=== PATIENT | male | born 1940 | race Caucasian/White ===

== ENCOUNTER → 2018-10-30 | Outpatient (CLI) | payer MEDICARE ==
--- NOTE | 2018-10-30 10:17 | Diagnostic Imaging Report ---
Clinical indication: Patient with chronic kidney disease. Exam: Ultrasound of both kidneys. Comparison: Bilateral renal Doppler ultrasound dated 04/14/2018.. Findings: There are multiple bilateral renal cysts seen. The largest one in the right kidney measures 1.9 cm and is seen involving the superior pole. The previous largest cyst on the prior study measured 2.5 cm involving the lateral aspect of the right kidney. There is a 7 mm cyst involving the inferior pole left kidney. There is slight increased echogenicity involving the cortical regions of both kidneys. There is normal cortical thickness without hydronephrosis, stones, or other focal lesions with the right and left kidneys measuring 9.6 cm and 11.3 cm in their craniocaudal dimensions, respectively. Prostate gland is enlarged measuring 5.5 cm in transverse dimension. Otherwise, the bladder is fluid filled with no gross abnormality. Bilateral ureter jets are seen. Impression: 1: There is no evidence of acute renal process. There is no hydronephrosis. 2: There is cortical hyperechogenicity involving both kidneys which may be seen with chronic medical renal disease. 3: Bilateral renal cysts. 4: Enlarged prostate gland. Dictated by: Dictated on workstation # [id number]
== END ==
LOC: RAD 08:53
PROVIDERS: ATTEND Internal Medicine Nephrology
DX: I12.9 Hypertensive chronic kidney disease with stage 1 through stage 4 chronic kidney disease, or unspecified chronic kidney disease (principal); N18.4 Chronic kidney disease, stage 4 (severe); D63.1 Anemia in chronic kidney disease; N28.1 Cyst of kidney, acquired; N40.0 Benign prostatic hyperplasia without lower urinary tract symptoms; R73.03 Prediabetes
CPT/HCPCS: 76770

== ENCOUNTER → 2021-12-29 | Outpatient (CLI) | payer MEDICARE ==
--- NOTE | 2021-12-29 18:04 | Diagnostic Imaging Report ---
PROCEDURE: US Renal Bilateral. TECHNIQUE: Multiple real-time grayscale images were obtained over the kidneys in various projections bilaterally. INDICATION: Stage IV chronic kidney disease. FINDINGS: Right kidney measures 10.6 cm. There are multiple right renal cysts, the largest of which off the upper pole is 2.8 cm and off the lower pole 1.7 cm. There is no hydronephrosis. Aside from the cysts, the cortical echotextures and cortical thickness appear normal. The left kidney measures 10.0 cm and has a 6 mm exophytic cyst, simple, off its lower pole. Aside from the cyst, the left renal cortical thickness and echotexture are otherwise normal. There is no hydronephrosis. The urinary bladder appears unremarkable. The prostate indents its base and measures 4.9 x 5.2 x 3.5 cm. IMPRESSION: 1. Right greater than left renal cysts without hydronephrosis. Renal volumes, cortical thickness and echotexture otherwise were normal. 2. Prostamegaly indents the otherwise normal-appearing bladder base. Dictated by: Dictated on workstation # [id number]
== END ==
LOC: RAD 14:23
PROVIDERS: ATTEND Internal Medicine Nephrology
DX: N28.1 Cyst of kidney, acquired (principal); N40.0 Benign prostatic hyperplasia without lower urinary tract symptoms; I12.9 Hypertensive chronic kidney disease with stage 1 through stage 4 chronic kidney disease, or unspecified chronic kidney disease; N18.4 Chronic kidney disease, stage 4 (severe); E79.0 Hyperuricemia without signs of inflammatory arthritis and tophaceous disease
CPT/HCPCS: 76770

== ENCOUNTER 2022-03-01 06:20 | Outpatient (CLI) | payer MEDICARE ==
[~2022-03-01] VITALS: Ht 182.9 cm; Wt 81.7 kg
[2022-03-06] MEDS ORDERED: NF-SODBICA PO (14:33)
[2022-03-06] MEDS ORDERED: ISOS60TA63 PO (14:33)
[2022-03-06] MEDS ORDERED: CALC0.253 PO (14:33)
[2022-03-06] MEDS ORDERED: ATOR40TA70 PO (14:33)
[2022-03-06] MEDS ORDERED: LEVO50CA4 PO (14:33)
[2022-03-06] MEDS ORDERED: ALLO100T PO (14:33)
[2022-03-06] MEDS ORDERED: DILT-27 PO (14:33)
== END 2022-03-06 15:10 | disposition home or self-care (01) ==
LOC: PREOP 06:20
PROVIDERS: ATTEND Specialist
DX: Z01.818 Encounter for other preprocedural examination (principal)

== ENCOUNTER 2022-03-09 08:57 | Day surgery (SDC) | payer MEDICARE ==
[~2022-03-09] VITALS: Ht 182.9 cm; Wt 81.7 kg
[~2022-03-09 08:57] MED LIST: ALLO100T PO; ATOR40TA70 PO; CALC0.253 PO; DILT-27 PO; ISOS60TA63 PO; LEVO50CA4 PO; NF-SODBICA PO
[2022-03-09] MEDS: TETRACAINE 0.5% OPHTH SOLN 4 ML BTL (SINGLE DOSE ONLY) OU PRN ×3 (09:25→09:31)
[2022-03-09] MEDS ORDERED: PHENYLEPHRINE 10% OPHTH (NEO-SYN) 5 ML BTL OU PRN (09:30)
[2022-03-09] MEDS ORDERED: TROPICAMIDE 1% OPH SOLN (MYDRIACYL) 15 ML BTL OU PRN (09:30)
[2022-03-09 09:32] VITALS: BP 209/102
--- NOTE | 2022-03-09 10:59 | Ophthalmologist Pre-Op Note ---
Pre-Operative Progress Note H&P Reviewed The H&P was reviewed, patient examined and no changes noted. Date H&P Reviewed: Mar 09, 2022 Time H&P Reviewed: 10:49 Pre-Op Dx Secondary Cataract, Bilateral Eyes LEILANI COLEMAN MD Mar 09, 2022 10:59
--- NOTE | 2022-03-09 11:00 | Ophthalmology Operative Report ---
YAG Capsulotomy PREOPERATIVE DIAGNOSIS: Secondary Cataract Bilateral POSTOPERATIVE DIAGNOSIS: Secondary Cataract Bilateral PROCEDURE: YAG Capsulotomy, Bilateral SURGEON: Daniel Coleman ANESTHESIA: Topical anesthesia COMPLICATIONS: None ESTIMATED BLOOD LOSS: Minimal DESCRIPTION OF PROCEDURE: After proper informed consent was obtained, the patient's, a 82 male , received one drop of Tropicamide and one drop of Tetracaine in each eye. The patient was then placed at the YAG laser and using a power of [ 4.5] millijoules and bursts [18 ] right eye and [24 ] left eye were used to fashion a central capsulotomy. The patient tolerated the procedure well without complications. DANIEL COLEMAN MD Mar 09, 2022 11:00
== END 2022-03-09 09:50 | disposition home or self-care (01) ==
LOC: SDC 08:57 → EDSTATUS 11:45
PROVIDERS: ATTEND Specialist
DX: E11.36 Type 2 diabetes mellitus with diabetic cataract (principal); H26.40 Unspecified secondary cataract; Z87.891 Personal history of nicotine dependence

== ENCOUNTER 2022-04-04 17:59 | Inpatient (IN) | payer MEDICARE ==
[~2022-04-04] VITALS: Ht 182 cm; Wt 77.8 kg
--- NOTE | 2022-04-04 18:18 | ED Respiratory ---
General Chief Complaint: Respiratory Problems Stated Complaint: SOA,BRONCHITIS Nursing Triage Note: ARRIVED VIA AMB TO ROOM 06 WITH COMPLAINTS OF SOA AND BRONCHITIS FOR 5 WEEKS THAT IS NOT GETTING BETTER. Source: patient, other ( TALKS RAPIDLY NON-STOP AT GREAT LENGTH, AND DOES ALL TALKING FOR PT) Exam Limitations: other (PT AND ARE SOMEWHAT DIFFICULT HISTORIANS) History of Present Illness Date Seen by Provider: Apr 04, 2022 Time Seen by Provider: 18:05 Initial Comments PT ARRIVES VIA POV FROM HOME WITH C/O SHORTNESS OF BREATH AND NON-PRODUCTIVE COUGH X 5 WEEKS SYMPTOMS WORSE SINCE SATURDAY NO FEVER NO CHEST PAIN NO SWELLING IN LEGS/FEET NO DIZZINESS OR SYNCOPE NO GI SYMPTOMS PT SAW DR. ANIA CORONA SEVERAL WEEKS AGO, AFTER HIS SYMPTOMS BEGAN AND WAS STARTED ON DOXYCYCLINE 03/10/22 AND STATES ALSO DEXAMETHASONE, BUT PHARMACY HAS NO RECORD OF STEROIDS, ONLY DOXYCYCLINE HE DID NOT HAVE ANY TESTS OF ANY KIND HE HAS NOT FOLLOWED UP WITH HIM OR ANYONE ELSE SINCE THEN THOUGHT HE WAS GETTING BETTER, THEN STARTED GETTING BAD AGAIN ON SATURDAY WITH INCREASED COUGH AND SHORTNESS OF BREATH PT HAS NOT TAKEN ANYTHING FOR SYMPTOMS PT IS NOT COVID OR FLU VACCINATED DENIES ANY HISTORY OF LUNG OR HEART PROBLEMS--STATES HIS ONLY MEDICAL PROBLEM IS HIGH BLOOD PRESSURE. STATES HE SAW DR. QUINTERO ONE TIME --PT AND DO NOT KNOW WHY HE WAS TOLD TO SEE STUDY ASSISTANT. PCP: DR. ANIA CORONA Allergies and Home Medications Allergies Coded Allergies: No Known Allergies (Unverified Allergy, Unknown, 03/06/22) Patient Home Medication List Home Medication List Reviewed: Yes Allopurinol (Allopurinol) 100 Mg Tablet, 100 MG PO DAILY, (Reported) Entered as Reported by: ARIE PICHARDO on 03/06/22 143 Atorvastatin Calcium (Atorvastatin Calcium) 40 Mg Tablet, 40 MG PO DAILY, (Reported) Entered as Reported by: ARIE PICHARDO on 03/06/22 143 Calcitriol (Calcitriol) 0.25 Mcg Capsule, 0.25 MCG PO DAILY, (Reported) Entered as Reported by: ARIE PICHARDO on 03/06/22 143 Diltiazem HCl (Diltiazem 24Hr ER) 120 Mg Cap.er.24h, 120 MG PO DAILY, (Reported) Entered as Reported by: ARIE PICHARDO on 03/06/22 143 Isosorbide Mononitrate (Isosorbide Mononitrate ER) 60 Mg Tab, 60 MG PO DAILY, (Reported) Entered as Reported by: ARIE PICHARDO on 03/06/22 1433 Levothyroxine Sodium (Levothyroxine) 50 Mcg Capsule, 50 MCG PO, (Reported) Entered as Reported by: ARIE PICHARDO on 03/06/22 1433 Sodium Bicarbonate (Sodium Bicarbonate) 650 Mg Tablet, 1,300 MG PO DAILY, (Reported) Entered as Reported by: ARIE PICHARDO on 03/06/22 1433 Review of Systems Review of Systems Constitutional: no symptoms reported EENTM: no symptoms reported Respiratory: see HPI, cough, short of breath Cardiovascular: no symptoms reported; No chest pain, No edema, No palpitations Gastrointestinal: no symptoms reported Genitourinary: no symptoms reported Musculoskeletal: no symptoms reported Skin: no symptoms reported Psychiatric/Neurological: No Symptoms Reported Hematologic/Lymphatic: No Symptoms Reported Immunological/Allergic: no symptoms reported Past Syuokwe-Avhnyi-Hgecxy Hx Patient Social History Tobacco Use?: Yes Tobacco type used: Cigarettes Smoking Status: Former Smoker Smokeless Tobacco Frequency: Never a User Use of E-Cig and/or Vaping Arslan: Never a User Substance use?: No Alcohol Use?: No Immunizations Up To Date COVID19 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 BENTLEY/NEPHROLOGY) Renal Failure Gastrointestinal: No Musculoskeletal: Yes Gout Endocrine: Yes Hypothyroidsim HEENT: Yes (BILATERAL CATARACTS 03/09/22) Cataract Cancer: No Psychosocial: No Integumentary: No Blood Disorders: Yes (ANEMIA) Family Medical History SOCIAL HISTORY: -SMOKED 1/2-1 PPD, QUIT 10 YEARS AGO -DENIES ETOH -DENIES DRUG USE Physical Exam Vital Signs - First Documented 04/04/22 04/04/22 18:00 18:15 Temp 36.4 Pulse 99 Resp 16 B/P (MAP) 157/132 (140) Pulse Ox 94 O2 Delivery Room Air O2 Flow Rate 2.00 Capillary Refill : Less Than 3 Seconds Height: '" Weight: lbs. oz. kg; 23.00 BMI Method: General Appearance: WD/WN, thin, other (MODERATELY DYSPNEIC, ABLE TO TALK IN SHORT SENTENCES. 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, no motor/sensory deficits, alert, normal mood/affect, oriented x 3 Skin: normal color, warm/dry Focused Exam Sepsis Stage: Ruled Out Reason for ruling out sepsis: DOES NOT MEET CRITERA Possible Source: Pulmonary Lactate Level 04/04/22 18:10: Lactic Acid Level 2.00 Time of Focused Exam: 19:00 Respiratory: Other (MUCH IMPROVEMENT IN LUNG SOUNDS, MILD BIBASILAR RALES RESIDUAL) Cardiovascular: Regular Rate, Rhythm, No Edema, No JVD, No Murmur Capillary Refill: Less Than 3 Seconds Lactic Acid Level Laboratory Tests Test 04/04/22 18:10 Lactic Acid Level 2.00 MMOL/L (0.50-2.00) Within 3hrs of presentation: Admin ABX, Blood cultures prior to ABX's, Focus exam, Lactate level, Other (FLUIDS HELD DUE TO CHF, PRESENT, WITH RENAL FAILURE. ) Progress/Results/Core Measures Suspected Sepsis SIRS Temperature: Pulse: 99 Respiratory Rate: 16 Laboratory Tests 04/04/22 18:10: White Blood Count 9.8 Blood Pressure 157 /132 Mean: 140 04/04/22 18:10: Lactic Acid Level 2.00 Laboratory Tests 04/04/22 18:10: Creatinine 4.26H, INR Comment 1.0, Platelet Count 353, Total Bilirubin 0.2 Results/Orders Lab Results Laboratory Tests Test 04/04/22 18:10 04/04/22 18:12 04/04/22 18:58 Range/Units White Blood Count 9.8 4.3-11.0 10^3/uL Red Blood Count 3.84 L 4.30-5.52 10^6/uL Hemoglobin 9.8 L 13.3-17.7 g/dL Hematocrit 32 L 40-54 % Mean Corpuscular Volume 82 80-99 fL Mean Corpuscular Hemoglobin 26 25-34 pg Mean Corpuscular Hemoglobin Concent 31 L 32-36 g/dL Red Cell Distribution Width 18.5 H 10.0-14.5 % Platelet Count 353 130-400 10^3/uL Mean Platelet Volume 9.3 9.0-12.2 fL Immature Granulocyte % (Auto) 1 % Neutrophils (%) (Auto) 51 42-75 % Lymphocytes (%) (Auto) 44 12-44 % Monocytes (%) (Auto) 4 0-12 % Eosinophils (%) (Auto) 0 0-10 % Basophils (%) (Auto) 0 0-10 % Neutrophils # (Auto) 4.9 1.8-7.8 10^3/uL Lymphocytes # (Auto) 4.3 H 1.0-4.0 10^3/uL Monocytes # (Auto) 0.4 0.0-1.0 10^3/uL Eosinophils # (Auto) 0.0 0.0-0.3 10^3/uL Basophils # (Auto) 0.0 0.0-0.1 10^3/uL Immature Granulocyte # (Auto) 0.1 0.0-0.1 10^3/uL Erythrocyte Sedimentation Rate > 140 H 0-30 MM/HR Prothrombin Time 13.5 12.2-14.7 SEC INR Comment 1.0 0.8-1.4 Activated Partial Thromboplast Time 30 24-35 SEC D-Dimer 5.69 H 0.00-0.49 UG/ML Sodium Level 135 135-145 MMOL/L Potassium Level 4.6 3.6-5.0 MMOL/L Chloride Level 108 H 98-107 MMOL/L Carbon Dioxide Level 17 L 21-32 MMOL/L Anion Gap 10 5-14 MMOL/L Blood Urea Nitrogen 62 H 7-18 MG/DL Creatinine 4.26 H 0.60-1.30 MG/DL Estimat Glomerular Filtration Rate 13 BUN/Creatinine Ratio 15 Glucose Level 111 H 70-105 MG/DL Lactic Acid Level 2.00 0.50-2.00 MMOL/L Calcium Level 9.6 8.5-10.1 MG/DL Corrected Calcium 10.5 H 8.5-10.1 MG/DL Magnesium Level 1.9 1.6-2.4 MG/DL Total Bilirubin 0.2 0.1-1.0 MG/DL Aspartate Amino Transf (AST/SGOT) 24 5-34 U/L Alanine Aminotransferase (ALT/SGPT) 16 0-55 U/L Alkaline Phosphatase 71 40-136 U/L Total Creatine Kinase 34 30-200 U/L Creatine Kinase MB 2.1 <6.6 NG/ML Myoglobin 127.6 H 10.0-92.0 NG/ML Troponin I 0.480 *H <0.028 NG/ML C-Reactive Protein High Sensitivity 6.49 H 0.00-0.50 MG/DL B-Type Natriuretic Peptide 1600.6 H <100.0 PG/ML Total Protein 9.0 H 6.4-8.2 GM/DL Albumin 2.9 L 3.2-4.5 GM/DL Procalcitonin 0.64 H <0.10 NG/ML Influenza Type A (RT-PCR) Not Detected Not Detecte Influenza Type B (RT-PCR) Not Detected Not Detecte SARS-CoV-2 RNA (RT-PCR) Not Detected Not Detecte Urine Color YELLOW Urine Clarity CLEAR Urine pH 6.0 5-9 Urine Specific [place] 1.020 1.016-1.022 Urine Protein 2+ H NEGATIVE Urine Glucose (UA) TRACE H NEGATIVE Urine Ketones NEGATIVE NEGATIVE Urine Nitrite NEGATIVE NEGATIVE Urine Bilirubin NEGATIVE NEGATIVE Urine Urobilinogen 0.2 < = 1.0 MG/DL Urine Leukocyte Esterase NEGATIVE NEGATIVE Urine RBC (Auto) 1+ H NEGATIVE Urine RBC 2-5 H /HPF Urine WBC 0-2 /HPF Urine Squamous Epithelial Cells 2-5 /HPF Urine Crystals NONE /LPF Urine Bacteria TRACE /HPF Urine Casts PRESENT /LPF Urine Hyaline Casts 0-2 H /LPF Urine Mucus NEGATIVE /LPF Urine Culture Indicated NO My Orders Orders - JAMEY FIELDS DO Ed Iv/Invasive Line Start (04/04/22 18:05) Ekg Tracing (04/04/22 18:05) O2 (04/04/22 18:05) Monitor-Rhythm Ecg Trace Only (04/04/22 18:05) Bnp [place] (04/04/22 18:05) Cbc With Automated Diff (04/04/22 18:05) Comprehensive Metabolic Panel (04/04/22 18:05) Creatine Kinase (04/04/22 18:05) Creatine Kinase Mb (04/04/22 18:05) Hs C Reactive Protein (04/04/22 18:05) Fibrin Degradation Products (04/04/22 18:05) Lactic Acid Analyzer (04/04/22 18:05) Magnesium (04/04/22 18:05) Protime With Inr (04/04/22 18:05) Partial Thromboplastin Time (04/04/22 18:05) Ua Culture If Indicated (04/04/22 18:05) Erythrocyte Sedimentation Rate (04/04/22 18:05) Myoglobin Serum (04/04/22 18:05) Troponin I [place] (04/04/22 18:05) Chest 1 View, Ap/Pa Only (04/04/22 18:05) Procalcitonin (Pct) (04/04/22 18:05) Covid 19 Inhouse Test (04/04/22 18:05) Ed Iv/Invasive Line Start (04/04/22 18:05) Vital Signs Adult Sepsis Patie Q15M (04/04/22 18:05) Remove Rings In Anticipation O (04/04/22 18:05) Influenza A And B By Pcr (04/04/22 18:05) Isolation Central Supply Req (04/04/22 18:05) Albuterol/Ipra Inhalation Soln (Duoneb I (04/04/22 18:30) Dexamethasone Injection (Decadron Injec (04/04/22 18:30) Rt Request For Service (04/04/22 18:27) Methylprednisolone Sod Succ (Solu-Medrol (04/04/22 18:27) Svn Small Volume Nebulizer (04/04/22 18:27) Enoxaparin Injection (Lovenox Injection) (04/04/22 19:00) Cefepime Injection (Maxipime Injection) (04/04/22 19:00) Furosemide Injection (Lasix Injection) (04/04/22 19:00) Medications Given in ED Current Medications Medications Dose Ordered Sig/Caio Route Start Time Stop Time Status Last Admin Dose Admin Albuterol/ Ipratropium 3 ml ONCE ONCE INH 04/04/22 18:30 04/04/22 18:31 DC 04/04/22 18:40 3 ML Cefepime HCl 1000 mg/Sodium Chloride 50 ml @ 100 mls/hr ONCE ONCE IV 04/04/22 19:00 04/04/22 19:29 DC 04/04/22 19:07 100 MLS/HR Dexamethasone Sodium Phosphate 20 mg ONCE ONCE IH 04/04/22 18:30 04/04/22 18:31 DC 04/04/22 18:40 20 MG Enoxaparin Sodium 80 mg ONCE ONCE SC 04/04/22 19:00 04/04/22 19:01 DC 04/04/22 19:08 80 MG Furosemide 40 mg ONCE ONCE IVP 04/04/22 19:00 04/04/22 19:01 DC 04/04/22 19:08 40 MG Vital Signs/I&O 04/04/22 04/04/22 04/04/22 04/04/22 18:00 18:15 18:51 18:53 Temp 36.4 Pulse 99 Resp 16 B/P (MAP) 157/132 (140) Pulse Ox 94 98 99 O2 Delivery Room Air Nasal Cannula Room Air Room Air O2 Flow Rate 2.00 Capillary Refill : Less Than 3 Seconds Blood Pressure Mean: 140 Progress Note : Progress Note SEPSIS PROTOCOL INITIATED COVID AND FLU TESTING DONE O2 SAT 91% ON ROOM AIR ON ARRIVAL, PLACED ON O2 AT 2L/NC AND O2 SATS UP TO 96% INITIAL BP 157/123, HR IN 90'S, RR 40'S-50'S GIVEN NEB TREATMENT WITH IMPROVEMENT IN DYSPNEA, AND IMPROVEMENT IN LUNG SOUNDS--DECREASED WHEEZING, RALES AND RHONCHI--HAS MILD RESIDUAL BIBASILAR RALES, LUNGS ARE OTHERWISE CLEAR NOW. PT IS SIGNIFICANTLY LESS DYSPNEIC O2 SATS 100% ON 2L/NC BP DOWN TO 120'S/80'S. RESPIRATORY RATE DOWN TO MID 20'S. GIVEN: -SOLU-MEDROL -LASIX -ANTIBIOTICS -LOVENOX NO DETERIORATION IN PT'S CONDITION DURING ER STAY PT DOES NOT MEET FULL SEPSIS CRITERIA AT THIS TIME FLUIDS HELD PT IS IN CHF, AND HAS RENAL FAILURE, WITH CR 4.6 PT IS VERY COMPLEX MANAGEMENT, DUE TO MULTIPLE ISSUES: POSSIBLE UNDERLYING PNEUMONIA, WITH CHF, RENAL FAILURE, ELEVATED TROPONIN, ELEVATED D-DIMER WILL TREAT WITH LOVENOX, AND OBTAIN V/Q SCAN IN AM PT IS IN RENAL FAILURE AND CANNOT DO CT ANGIOGRAM OF CHEST TO RULE OUT P.E. IF PT NEEDS FURTHER TESTING SUCH CARDIAC CATH, WORSENING RENAL FAILURE, ETC. HE WILL NEED TO BE TRANSFERRED DUE TO CHRONIC RENAL FAILURE. DR. IBARRA AND DR. QUINTERO OK WITH KEEPING HIM HERE FOR NOW. PT HAS NO PRIOR RECORDS HERE, NO PRIOR EKG'S FOR COMPARISON, NO OUTPATIENT LABS FOR COMPARISON REVIEWED ALL TEST RESULTS, PLAN OF CARE, NEED FOR ADMIT, WITH PT AND . ECG Initial ECG Impression Date: Apr 04, 2022 Initial ECG Impression Time: 18:12 Initial ECG Rate: 94 Initial ECG Rhythm: Normal Sinus (RBB) Initial ECG Comparisson: No Previous ECG Available Comment INTERPRETED BY ME. Diagnostic Imaging Comments CXR--PER RADIOLOGIST REPORT AT 1852 FINDINGS: Heart size is at the upper limits of normal. There is pulmonary venous congestion. There is diffuse mixed interstitial and alveolar density which has a perihilar and basilar predominance. No pneumothorax is seen. There is no significant pleural fluid. IMPRESSION: Findings are suggestive of extensive pulmonary edema likely on the basis of congestive heart failure or other acute cardiac decompensation. Clinical correlation and follow-up study would be useful. Reviewed: Reviewed by Me Departure Communication (Admissions) 1911--SPOKE WITH DR. IBARRA, HOSPITALIST, ACCEPTS PT FOR ADMIT. 1917/1919--PAGED/SPOKE WITH DR. QUINTERO. HE ADVISES LASIX 100 MG X 1 DOSE, AND AGREES WITH LOVENOX. 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 Referrals: ANIA CORONA MD (PCP/Family) Primary Care Physician JAMEY FIELDS DO Apr 04, 2022 18:18
[2022-04-04 18:24] LABS: BASOPHILS % (AUTO) 0 % (0-10); EOSINOPHILS % (AUTO) 0 % (0-10); HEMATOCRIT 32 % (40-54); HEMOGLOBIN 9.8 g/dL (13.3-17.7); LYMPHOCYTES # (AUTO) 4.3 10^3/uL (1.0-4.0); LYMPHOCYTES % (AUTO) 44 % (12-44); MEAN CORPUSCULAR HEMOGLOBIN 26 pg (25-34); MEAN CORPUSCULAR HGB CONC 31 g/dL (32-36); MEAN CORPUSCULAR VOLUME 82 fL (80-99); MEAN PLATELET VOLUME 9.3 fL (9.0-12.2); MONOCYTES # (AUTO) 0.4 10^3/uL (0.0-1.0); MONOCYTES % (AUTO) 4 % (0-12); NEUTROPHILS # (AUTO) 4.9 10^3/uL (1.8-7.8); NEUTROPHILS % (AUTO) 51 % (42-75); PLATELET COUNT 353 10^3/uL (130-400); WHITE BLOOD COUNT 9.8 10^3/uL (4.3-11.0)
[2022-04-04] MEDS ORDERED: methylPREDNISolone 125 MG (Solu-MEDROL) VIAL IV STA (18:27)
[2022-04-04] MEDS ORDERED: RT-ALBUTEROL/IPRATROPIUM 3 ML (DUONEB) VIAL INH ONE (18:30)
[2022-04-04 18:34] LABS: ALBUMIN 2.9 GM/DL (3.2-4.5); POTASSIUM 4.6 MMOL/L (3.6-5.0)
[2022-04-04 18:35] LABS: CALCIUM 9.6 MG/DL (8.5-10.1)
[2022-04-04 18:38] LABS: BILIRUBIN,TOTAL 0.2 MG/DL (0.1-1.0)
[2022-04-04 18:40] LABS: CREATININE SERUM 4.26 MG/DL (0.60-1.30)
[2022-04-04 18:43] LABS: MAGNESIUM 1.9 MG/DL (1.6-2.4)
[2022-04-04 18:48] LABS: FIBRIN DEGRADATION PRODUCTS 5.69 UG/ML (0.00-0.49); PROTHROMBIN TIME PATIENT 13.5 SEC (12.2-14.7)
--- NOTE | 2022-04-04 18:49 | Diagnostic Imaging Report ---
INDICATION: Dyspnea. EXAMINATION: AP view of the chest was obtained. COMPARISON: There is no previous study for comparison. FINDINGS: Heart size is at the upper limits of normal. There is pulmonary venous congestion. There is diffuse mixed interstitial and alveolar density which has a perihilar and basilar predominance. No pneumothorax is seen. There is no significant pleural fluid. IMPRESSION: Findings are suggestive of extensive pulmonary edema likely on the basis of congestive heart failure or other acute cardiac decompensation. Clinical correlation and follow-up study would be useful. Dictated by: Dictated on workstation # [id number]
[2022-04-04 18:51] LABS: CREATINE KINASE MB 2.1 NG/ML (<6.6)
[2022-04-04] MEDS ORDERED: ENOXAPARIN 80 MG/0.8 ML (LOVENOX) SYR SC ONE (19:00)
[2022-04-04] MEDS ORDERED: CEFEPIME INJECTION 1,000 MG in NS (IVPB) 50 ML IV ONE (19:00)
[2022-04-04] MEDS ORDERED: FUROSEMIDE 40 MG/4 ML INJ (LASIX) IVP ONE ×2 (19:00→19:30)
[2022-04-04 19:03] LABS: ERYTHROCYTE SEDIMENTATION RATE > 140 MM/HR (0-30)
[2022-04-04 19:03] LABS: BILIRUBIN,URINE NEGATIVE (NEGATIVE); CLARITY,URINE CLEAR; COLOR,URINE YELLOW; GLUCOSE, URINE (UA) TRACE (NEGATIVE); KETONES,URINE NEGATIVE (NEGATIVE); LEUKOCYTE ESTERASE ,URINE NEGATIVE (NEGATIVE); NITRITE,URINE NEGATIVE (NEGATIVE); PROTEIN,URINE 2+ (NEGATIVE)
[2022-04-04 19:13] LABS: BACTERIA,URINE TRACE /HPF; WBC,URINE 0-2 /HPF
[2022-04-04 19:14] LABS: HYALINE CASTS, URINE 0-2 /LPF
[2022-04-04] MEDS ORDERED: RT-ALBUTEROL/IPRATROPIUM 3 ML (DUONEB) VIAL INH PRN (22:00)
--- NOTE | 2022-04-04 22:19 | Tele-ICU Progress Note ---
Progress Note 82M iwth CKD, baseline unknown, carotid stenosis, h/o subclavian steal 2016, HTN, hypothyroid, quit smoking 10 years ago, presenting with SOB and nonproductive cough x5 weeks. Given course of doxy 03/10/22. stated that there was no improvement, patient thought there was some improvement which worsened again 3 days ago. No CP, edema, palpitions. Improved with nebulizer in ED, with both improvement in resp distress/dyspnea as well as in wheezing and SpO2. He was also give lasix 100 mg per cardiology and empiric lovenox for possible PE. On arrival to ICU he was weaned off O2, appears comfortable and without complaints at this time. - SOB: secondary to new CHF vs undiagnosed COPD vs pna vs PE. See below. - CHF: denies prior history of heart problems. Appears to have pulmonary edema on CXR, BNP of 1600. Cardiology consulted. Anticipate echo in AM. If needs cath will need to transfer to facility with nephro available. - COPD: no known history of COPD, no prior evaluation. Quit smoking 10 years ago. Given rapid improvement with neb, may be a component of reactive airway disease. Will give PRN nebs for now. May warrant outpatient PFTs after resolution of acute issues. - pna: can not exclude component of pna. Marginal PCT elevation. Cefepime initiated in ED. - PE: also can not exclude PE at this time. Could be precipitating factor to HF picture. Unable to get CTA in setting of renal failure. Therapuetic lovenox given and VQ ordered for AM. - troponemia: marginal elevation, likely demand. Will trend. Therapuetic lovenox given. Will make sure subsequent dosing is renally adjusted. Cardiology m anaging. - CKD: Creatinine 4.2. Baseline renal function unknown, but has 2 years documentation of CKD4. Has no prior admissions. However did have a few renal ultrasounds as outpatient. 04/14/18 US with indication CKD3, on 10/30/2018 and 12/29/2021 had indication listed as CKD4. Monitor UOP and renal function. May be progressing to end stage renal disease contributing to fluid overload. Has had about 1L out since lasix (free void x2, 1st unknown, 2nd >500) - metabolic acidosis: again, baseline unknown. But noted to be on bicarb tabs at home. Likely chronic in nature, possibly worsened in setting of acute illness or progresssive renal failure. Details limited at this time. Continue home bicarb tabs. Repeat BMP in AM. CCT 28 min Focused Exam Lactate Level 04/04/22 18:10: Lactic Acid Level 2.00 Height, Weight, BMI Height: '" Weight: lbs. oz. kg; 22.97 BMI Method: Time of Focused Exam: 19:00 LIA BOOKER MD Apr 04, 2022 22:19
[2022-04-04] MEDS ORDERED: EPINEPHrine 1 MG INJECTION 4 MG in NS (IVPB) 248 ML IV SCH (23:15)
[2022-04-04] MEDS ORDERED: morphine INJ 4 MG/ML 1 ML (VIAL/SYRINGE) IV PRN (23:15)
[2022-04-04] MEDS ORDERED: NOREPINEPHRINE 8 MG/250 ML 250 ML IV SCH (23:15)
[2022-04-04] MEDS ORDERED: 1/2 NS IV SOLUTION 1,000 ML IV SCH (23:15)
[2022-04-04] MEDS ORDERED: ACETAMINOPHEN 500 MG TAB (TYLENOL) PO PRN (23:15)
[2022-04-04] MEDS ORDERED: NITROGLYCERIN 0.4 MG SL TABS BTL 25'S SL PRN (23:15)
[2022-04-04] MEDS ORDERED: ONDANSETRON 4 MG/2 ML (SDV) Z0FRAN IVP PRN (23:15)
[2022-04-04] MEDS ORDERED: LACTATED RINGERS 1,000 ML IV ONE (23:34)
[2022-04-04] MEDS: LACTATED RINGERS 1,000 ML IV SCH (23:43)
[2022-04-04] MEDS: VASOPRESSIN INJECTION 20 UNIT in NS (IVPB) 100 ML IV SCH (23:46)
[2022-04-05] MEDS ORDERED: NS IV 500 ML 500 ML IV PRN (02:15)
[2022-04-05 05:24] LABS: BASOPHILS % (AUTO) 0 % (0-10); EOSINOPHILS % (AUTO) 0 % (0-10); HEMATOCRIT 25 % (40-54); HEMOGLOBIN 7.7 g/dL (13.3-17.7); LYMPHOCYTES # (AUTO) 1.4 10^3/uL (1.0-4.0); LYMPHOCYTES % (AUTO) 18 % (12-44); MEAN CORPUSCULAR HEMOGLOBIN 26 pg (25-34); MEAN CORPUSCULAR HGB CONC 31 g/dL (32-36); MEAN CORPUSCULAR VOLUME 81 fL (80-99); MEAN PLATELET VOLUME 9.9 fL (9.0-12.2); MONOCYTES # (AUTO) 0.1 10^3/uL (0.0-1.0); MONOCYTES % (AUTO) 1 % (0-12); NEUTROPHILS # (AUTO) 6.5 10^3/uL (1.8-7.8); NEUTROPHILS % (AUTO) 80 % (42-75); PLATELET COUNT 274 10^3/uL (130-400); WHITE BLOOD COUNT 8.1 10^3/uL (4.3-11.0)
[2022-04-05 05:48] LABS: POTASSIUM 5.2 MMOL/L (3.6-5.0)
[2022-04-05 05:49] LABS: ALBUMIN 2.5 GM/DL (3.2-4.5)
[2022-04-05 05:50] LABS: CALCIUM 8.9 MG/DL (8.5-10.1)
[2022-04-05 05:51] LABS: TOTAL PROTEIN 7.8 GM/DL (6.4-8.2)
[2022-04-05 05:53] LABS: BILIRUBIN,TOTAL 0.2 MG/DL (0.1-1.0)
[2022-04-05 05:54] LABS: PHOSPHORUS 5.1 MG/DL (2.3-4.7)
[2022-04-05 05:55] LABS: CREATININE SERUM 4.36 MG/DL (0.60-1.30)
[2022-04-05 05:58] LABS: MAGNESIUM 1.7 MG/DL (1.6-2.4)
[2022-04-05] MEDS ORDERED: POTASSIUM CL 10MEQ/50ML IVPB 50 ML IV SCH (06:00)
[2022-04-05] MEDS ORDERED: MAGNESIUM 1 GM/100 ML IVPB 100 ML IV SCH (06:00)
[2022-04-05] MEDS ORDERED: KCL 20 MEQ TAB (K-DUR) PO SCH (06:00)
[2022-04-05] MEDS: CEFEPIME 1,000 MG/NS 50 ML IVPB IV SCH ×4 (06:02→18:00)
[2022-04-05 06:22] LABS: FREE T4 (FREE THYROXINE) 0.83 NG/DL (0.70-1.48)
--- NOTE | 2022-04-05 07:50 | Consultation-Cardiology ---
HPI-Cardiology Cardiology Consultation: Date of Consultation 04/05/22 Time Seen by a Provider: 08:20 Date of Admission 04-04-2022 Attending Physician Christopher Barrow MD Admitting Physician Admitting Physician: Rodger Raza MD Attending Physician: Rodger Raza MD Consulting Physician Noé Beach MD HPI: Chief Complaint: Progressive dyspnea Mr. Hernandez is an 82 yr old male admitted to ICU 10 from the ED with c/o progressive dyspnea and "chest congestion" over the course of the last several weeks. He states he had been to see his PCP and was started on abx tx and steroid tx. He reports he felt yesterday he could not catch his breath so he took his steroid a few times yesterday (oral steroid), but continued to feel more SOB prompting him to the ED. He reports freq cough which is productive at times. No c/o CP, palpitations, syncope, near syncope or LE swelling. He reports he follows with Dr. Nichols of nephrology services. He reports his breathing is much better this morning. Review of Systems-Cardiology Review of Systems Constitutional: No chills, No fever; malaise Eyes: No vision change Ears/Nose/Throat: No epistaxis, No recent hearing loss Respiratory: As described under HPI Cardiovascular: As described under HPI Gastrointestinal: No constipation; diarrhea (yesterday); No nausea, No vomiting Genitourinary: No dysuria, No hematuria Musculoskeletal: no symptoms reported Skin: No rash on exposed areas, No ulcerations on exposed areas VED-Ogqpsg-Yrkzlw Hx Patient Social History Smoking Status: Former Smoker Have you traveled recently?: No Alcohol Use?: No Pt feels they are or have been: No Tobacco type used: Cigarettes Immunizations Up To Date Date of Influenza Vaccine: Dec 23, 2021 Past Medical History PMH As described under Assessment. Family Medical History Family Medical History: No reported family h/o CAD Allergies and Home Medications Allergies Coded Allergies: No Known Allergies (Unverified Allergy, Unknown, 03/06/22) Patient Home Medication List Allopurinol (Allopurinol) 100 Mg Tablet, 100 MG PO DAILY, (Reported) Entered as Reported by: ARIE PICHARDO on 03/06/22 2563 Last Action: Reviewed Atorvastatin Calcium (Atorvastatin Calcium) 40 Mg Tablet, 40 MG PO DAILY, (Reported) Entered as Reported by: ARIE PICHARDO on 03/06/221432 Last Action: Reviewed Calcitriol (Calcitriol) 0.25 Mcg Capsule, 0.25 MCG PO DAILY, (Reported) Entered as Reported by: ARIE PICHARDO on 03/06/221432 Last Action: Reviewed Diltiazem HCl (Diltiazem 24Hr ER) 120 Mg Cap.er.24h, 120 MG PO DAILY, (Reported) Entered as Reported by: ARIE PICHARDO on 03/06/221432 Last Action: Reviewed Ferrous Sulfate (Ferrous Sulfate) 325 Mg (65 Mg Iron) Tablet, 325 MG PO DAILY, (Reported) Entered as Reported by: LINDA MADISON on 04/05/221321 Last Action: Reviewed Isosorbide Mononitrate (Isosorbide Mononitrate ER) 60 Mg Tab, 60 MG PO DAILY, (Reported) Entered as Reported by: ARIE PICHARDO on 03/06/221432 Last Action: Reviewed Levothyroxine Sodium (Levothyroxine Sodium) 50 Mcg Tablet, 50 MCG PO S U,,TH,SA, (Reported) Entered as Reported by: LINDA MADISON on 04/05/221321 Last Action: Reviewed Levothyroxine Sodium (Levothyroxine Sodium) 50 Mcg Tablet, 25 MCG PO MO,WE,FR, (Reported) Entered as Reported by: LINDA MADISON on 04/05/221321 Last Action: Reviewed Meclizine HCl (Meclizine HCl) 25 Mg Tablet, 25 MG PO Q8H PRN for DIZZINESS, (Reported) Entered as Reported by: LINDA MADISON on 04/05/221321 Last Action: Reviewed Multivitamin (Multivitamin) 1 Each Tablet, 1 EACH PO DAILY, (Reported) Entered as Reported by: LINDA MADISON on 04/05/221321 Last Action: Reviewed Durham-3/Dha/Epa/Fish Oil (Fish Oil 1,000 mg Softgel) 1,000 Mg (120 Mg-180 Mg) Capsule, 1,000 MG PO DAILY, (Reported) Entered as Reported by: LINDA MADISON on 04/05/221321 Last Action: Reviewed Sodium Bicarbonate (Sodium Bicarbonate) 650 Mg Tablet, 1,300 MG PO DAILY, (Reported) Entered as Reported by: ARIE PICHARDO on 03/06/221432 Last Action: Reviewed Discontinued Medications Levothyroxine Sodium (Levothyroxine) 50 Mcg Capsule, 50 MCG PO, (Reported) Discontinued Reason: No Longer Taking Entered as Reported by: ARIE PICHARDO on 03/06/221432 Last Action: Discontinued Physical Exam-Cardiology Physical Exam Vital Signs/I&O 04/05/22 04/05/22 04/05/22 04/05/22 03:47 04:00 04:18 05:00 Temp 36.3 Pulse 63 63 Resp 16 16 B/P (MAP) 99/70 (80) 106/77 (87) Pulse Ox 98 96 97 O2 Delivery Room Air Room Air Room Air 04/05/22 04/05/22 04/05/22 04/05/22 06:00 07:00 07:00 07:45 Pulse 61 58 67 Resp 17 16 B/P (MAP) 103/80 (88) 115/87 (96) Pulse Ox 98 98 99 O2 Delivery Room Air Room Air Room Air O2 Flow Rate 0.00 04/05/22 04/05/22 04/05/22 04/05/22 07:54 08:00 08:00 09:00 Temp 36.0 Pulse 78 67 Resp 28 10 B/P (MAP) 113/80 (91) 120/85 (97) Pulse Ox 98 97 97 O2 Delivery Room Air Room Air Room Air 04/05/22 04/05/22 04/05/22 04/05/22 10:00 12:00 12:00 12:19 Temp 36.5 Pulse 76 85 Resp 18 25 B/P (MAP) 130/105 (113) 180/160 (167) Pulse Ox 98 100 99 O2 Delivery Room Air Room Air Room Air 04/05/22 04/05/22 12:58 13:00 Pulse 85 66 B/P (MAP) 180/160 04/05/22 00:00 Intake Total 50 ml Output Total 975 ml Balance -925 ml Capillary Refill : Less Than 3 Seconds Constitutional: AAO x 3, well-developed, well-nourished HEENT: PERRL, hearing is well preserved, oral hygience is good Neck: carotid bruit (Right side), carotid pulses are 2 + bilaterally Respiratory: No accessory muscle use, No respiratory distress; chest expansion is symmetric, chest is bilaterally symmetric, lungs clear to auscultation Cardiovascular: regular rate-rhythm; No JVD; S1 and S2 Gastrointestinal: No tender; soft, round, audible bowel sounds Extremities: no lower extremity edema bilateral Neurologic/Psychiatric: grossly intact (moves all extremities) Skin: No rash on exposed areas, No ulcerations on exposed areas Data Review Labs Laboratory Tests 04/04/22 18:10: White Blood Count 9.8, Red Blood Count 3.84L, Hemoglobin 9.8L, Hematocrit 32L, Mean Corpuscular Volume 82, Mean Corpuscular Hemoglobin 26, Mean Corpuscular Hemoglobin Concent 31L, Red Cell Distribution Width 18.5H, Platelet Count 353, Mean Platelet Volume 9.3, Immature Granulocyte % (Auto) 1, Neutrophils (%) (Auto) 51, Lymphocytes (%) (Auto) 44, Monocytes (%) (Auto) 4, Eosinophils (%) (Auto) 0, Basophils (%) (Auto) 0, Neutrophils # (Auto) 4.9, Lymphocytes # (Auto) 4.3H, Monocytes # (Auto) 0.4, Eosinophils # (Auto) 0.0, Basophils # (Auto) 0.0, Immature Granulocyte # (Auto) 0.1, Erythrocyte Sedimentation Rate > 140H, Prothrombin Time 13.5, INR Comment 1.0, Activated Partial Thromboplast Time 30, D-Dimer 5.69H, Sodium Level 135, Potassium Level 4.6, Chloride Level 108H, Carbon Dioxide Level 17L, Anion Gap 10, Blood Urea Nitrogen 62H, Creatinine 4.26 H, Estimat Glomerular Filtration Rate 13, BUN/Creatinine Ratio 15, Glucose Level 111H, Lactic Acid Level 2.00, Calcium Level 9.6, Corrected Calcium 10.5H, Magnesium Level 1.9, Total Bilirubin 0.2, Aspartate Amino Transf (AST/SGOT) 24, Alanine Aminotransferase (ALT/SGPT) 16, Alkaline Phosphatase 71, Total Creatine Kinase 34, Creatine Kinase MB 2.1, Myoglobin 127.6H, Troponin I 0.480*H, C- Reactive Protein High Sensitivity 6.49H, B-Type Natriuretic Peptide 1600.6H, Total Protein 9.0H, Albumin 2.9L, Procalcitonin 0.64H 04/04/22 18:12: Influenza Type A (RT-PCR) Not Detected, Influenza Type B (RT-PCR) Not Detected, SARS-CoV-2 RNA (RT-PCR) Not Detected 04/04/22 18:58: Urine Color YELLOW, Urine Clarity CLEAR, Urine pH 6.0, Urine Specific Atkinson 1.020, Urine Protein 2+H, Urine Glucose (UA) TRACEH, Urine Ketones NEGATIVE, Urine Nitrite NEGATIVE, Urine Bilirubin NEGATIVE, Urine Urobilinogen 0.2, Urine Leukocyte Esterase NEGATIVE, Urine RBC (Auto) 1+H, Urine RBC 2-5H, Urine WBC 0- 2, Urine Squamous Epithelial Cells 2-5, Urine Crystals NONE, Urine Bacteria TRACE, Urine Casts PRESENT, Urine Hyaline Casts 0-2H, Urine Mucus NEGATIVE, Urine Culture Indicated NO 04/04/22 21:37: Troponin I 0.430*H 04/05/22 00:43: Troponin I 0.441*H 04/05/22 04:44: White Blood Count 8.1, Red Blood Count 3.01L, Hemoglobin 7.7#L, Hematocrit 25L, Mean Corpuscular Volume 81, Mean Corpuscular Hemoglobin 26, Mean Corpuscular Hemoglobin Concent 31L, Red Cell Distribution Width 18.4H, Platelet Count 274, Mean Platelet Volume 9.9, Immature Granulocyte % (Auto) 1, Neutrophils (%) (Auto) 80H, Lymphocytes (%) (Auto) 18, Monocytes (%) (Auto) 1, Eosinophils (%) (Auto) 0, Basophils (%) (Auto) 0, Neutrophils # (Auto) 6.5, Lymphocytes # (Auto) 1.4, Monocytes # (Auto) 0.1, Eosinophils # (Auto) 0.0, Basophils # (Auto) 0.0, Immature Granulocyte # (Auto) 0.1, Sodium Level 131L, Potassium Level 5.2H, Chloride Level 105, Carbon Dioxide Level 14L, Anion Gap 12, Blood Urea Nitrogen 66H, Creatinine 4.36H, Estimat Glomerular Filtration Rate 13, BUN/Creatinine Ratio 15, Glucose Level 265H, Calcium Level 8.9, Corrected Calcium 10.1, Phosphorus Level 5.1H, Magnesium Level 1.7, Total Bilirubin 0.2, Aspartate Amino Transf (AST/SGOT) 18, Alanine Aminotransferase (ALT/SGPT) 13, Alkaline Phosphatase 62, B-Type Natriuretic Peptide 1469.6H, Total Protein 7.8, Albumin 2.5L, Triglycerides Level 118, Cholesterol Level 130, LDL Cholesterol Direct 72, VLDL Cholesterol 24, HDL Cholesterol 31L, Thyroid Stimulating Hormone (TSH) 2.09, Free Thyroxine 0.83 04/05/22 14:00: Sodium Level 133L, Potassium Level 5.0, Chloride Level 104, Carbon Dioxide Level 20L, Anion Gap 9, Blood Urea Nitrogen 69H, Creatinine 4.30H, Estimat Glomerular Filtration Rate 13, BUN/Creatinine Ratio 16, Glucose Level 183H, Calcium Level 9.1 Radiology NAME: RUSLAN HERNANDEZ [facility] REC#: [id number] PT STATUS: ADM IN : 1940 PHYSICIAN: JAMEY FIELDS DO ADMIT DATE: 04/04/22/ICU Signed Date of Exam:04/04/22 CHEST 1 VIEW, AP/PA ONLY INDICATION: Dyspnea. EXAMINATION: AP view of the chest was obtained. COMPARISON: There is no previous study for comparison. FINDINGS: Heart size is at the upper limits of normal. There is pulmonary venous congestion. There is diffuse mixed interstitial and alveolar density which has a perihilar and basilar predominance. No pneumothorax is seen. There is no significant pleural fluid. IMPRESSION: Findings are suggestive of extensive pulmonary edema likely on the basis of congestive heart failure or other acute cardiac decompensation. Clinical correlation and follow-up study would be useful. Dictated by: Dictated on workstation # [id number] Dict: 04/04/22 1846 Trans: 04/05/22 0545 [id number] Interpreted by: SHADI DUNLAP MD Electronically signed by: SHADI DUNLAP MD 04/05/22 0545 A/P-Cardiology Assessment/Admission Diagnosis Progressive dyspnea - likely multifactorial d/t acute CHF and pneumonia; ?PE Troponin elevation - NSTEMI vs type 2 MT secondary to acute CHF and CKD Pneumonia - management per medical services Anemia - reports h/o iron deficiency anemia Carotid dz - Internal carotid art disease: 25-40% bilat stenoses reported on carotid u/s of 10/27/15 Possible R subclavian steal syndrome reported on carotid u/s of 10/27/15 (retrogra de flow in R vertebral artery). MRA of neck of 11/03/15 was a poor study, but there was suggestion of high-grade stenosis of the prox R subclavian and of the origin of the right external carotid CKD stage 4 - followed by Dr. Nichols Hypercholesterolemia Hypertension Abnormal ECG: ECG of 11/07/15 shows RBBB Hypothyroidism - being treated with thyroid replacemnt therapy H/O tobacco use - quit in 2012 Discussion and Recomendations CHF - Echocardiogram today - Lasix as indicated tolerated ?PE - Lovenox; management per medical services Pneumonia - management per medical services CKD 4 - monitor renal function closely Hyperkalemia - poss secondary to CKD 4 Troponin elevation - NSTEMI vs type 2 MT secondary to CKD and acute CHF - If NSTEMI is suspected advise transfer to a tertiary care facility with nephrology services Monitor lab closely Further recs will be based on his hospital course We would like to thank medical services for this consult CHARISSA OROZCO Apr 05, 2022 07:50
[2022-04-05] MEDS: ASPIRIN E.C. 81 MG (ECOTRIN) TAB PO SCH (08:19)
--- NOTE | 2022-04-05 09:02 | Diagnostic Imaging Report ---
INDICATION: Congestive heart failure and pneumonia. TIME OF EXAM: 3:59 AM Correlation is made with prior chest one day earlier. FINDINGS: The heart is enlarged and stable. Congestive changes are again noted. There is central congestion and bilateral infiltrates, similar to one day earlier. No effusion or pneumothorax is identified. IMPRESSION: Continued findings of congestive failure. Dictated by: Dictated on workstation # [id number]
[2022-04-05] MEDS ORDERED: FUROSEMIDE 40 MG/4 ML INJ (LASIX) IVP ONE (09:45)
--- NOTE | 2022-04-05 10:20 | Tele-ICU Progress Note ---
Subjective Date Seen by a Provider: Apr 05, 2022 Time Seen by a Provider: 10:19 Subjective/Events-last exam (Tele-ICU Physician , Progress Note ) Service provided via interactive audio and video telecommunications E-CARE system to a patient admitted to ICU bed in [facility]. Patient is seen today due to persistent need of ICU care Available chart/ vitals / labs / Images reviewed Video assessment done using teleICU camera, rest of exam as per RN Discussed with RN Events overnight : Afebrile hemodynamically stable Respiratory - ra I/O = neg 900 Drips: Pressors- no Consultants: Hospital course: 04/04- c82yo M- to ER for SOB,cough x 5weeks . WBC-N, LA 2.0. CXR-Extensive pulmonary edema. Lasix given and dexamethasone.. Dx acute respiratory failure, CHF,PNA,elevated trop A/P Dyspnea, hypoxia - presumed secondary to new CHF vs undiagnosed COPD vs pna vs PE - improved with lasix and ABX and steroids w/up pending - PE: Unable to get CTA in setting of renal failure. Therapuetic lovenox given and VQ ordered CHF -cards consulted -ECHO 04/05 pending possible COPD ( : no known history of COPD, no prior evaluation. Quit smoking 10 years ago) -steroids IV given in ER - no need to cont now , cont nebs prn May warrant outpatient PFTs after resolution of acute issues. Possible PNA -Marginal PCT elevation - empiric Cefepime 04/04 Troponin elevation - NSTEMI vs type 2 IA secondary to acute CHF and CKD - a spe rcards CKD -Creatinine 4.2. Baseline renal function unknown, but has 2 years documentation of CKD4. Has no prior admissions. However did have a few renal ultrasounds as outpatient. 04/14/18 US with indication CKD3, on 10/30/2018 and 12/29/2021 had indication listed as CKD4. Monitor UOP and renal function. May be progressing to end stage renal disease contributing to fluid overload. Has had about 1L out since lasix (free void x2, 1st unknown, 2nd >500) - asked PharmD to calculate lovenox dose - metabolic acidosis: again, baseline unknown. But noted to be on bicarb tabs at home. Likely chronic in nature, possibly worsened in setting of acute illness or progresssive renal failure. Details limited at this time. Continue home bicarb tabs. Repeat BMP in AM. Lines : emeterio , (Central Line Necessity Reviewed) Roa: void OG: Nutrition: po Analgesia: Anxiety/ delirium na VTE Prophylaxis: lovenox Stress Ulcer Prophylaxis: Plans in collaboration with bedside consultants and IM MDs. Discussed with RN to reach out if any questions or concerns A total of 20 minutes of critical care time was devoted to this patient today, required to treat and/or prevent further deterioration of critical care condition ( as above ) . Sepsis Event Evaluation Height, Weight, BMI Height: '" Weight: lbs. oz. kg; 24.12 BMI Method: Focused Exam Lactate Level 04/04/22 18:10: Lactic Acid Level 2.00 Time of Focused Exam: 19:00 Exam Exam Patient acknowledged, consented, and participated in this virtual visit which was conducted using real time audio/video Vital Signs Date Time Temp Pulse Resp B/P (MAP) Pulse Ox O2 Delivery O2 Flow Rate FiO2 04/05/22 10:00 76 18 130/105 (113) 98 Room Air 04/05/22 09:00 67 10 120/85 (97) 97 Room Air 04/05/22 08:00 97 Room Air 04/05/22 08:00 78 28 113/80 (91) 98 Room Air 04/05/22 07:54 36.0 04/05/22 07:45 99 Room Air 0.00 04/05/22 07:00 67 16 115/87 (96) 98 Room Air 04/05/22 07:00 58 04/05/22 06:00 61 17 103/80 (88) 98 Room Air 04/05/22 05:00 63 16 106/77 (87) 97 Room Air 04/05/22 04:18 96 Room Air 04/05/22 04:00 63 16 99/70 (80) 98 Room Air 04/05/22 03:47 36.3 04/05/22 03:00 60 26 90/71 (77) 97 Room Air 04/05/22 02:00 58 23 85/65 (72) 96 Room Air 04/05/22 01:00 89 18 105/81 (89) 95 Room Air 04/05/22 01:00 81 04/05/22 00:00 36.1 04/05/22 00:00 71 105/73 (84) 97 Room Air 04/04/22 23:59 98 Room Air 04/04/22 23:00 66 17 88/63 (71) 96 Room Air 04/04/22 21:43 81 97 21 04/04/22 21:42 98 Room Air 04/04/22 21:30 83 22 118/88 (98) 96 Room Air 04/04/22 21:15 76 25 103/79 (87) 96 Room Air 04/04/22 21:04 36.5 Room Air 04/04/22 21:00 77 15 110/75 (87) 96 Room Air 04/04/22 20:55 82 04/04/22 20:45 77 15 123/78 (93) 96 Room Air 04/04/22 20:40 98 Room Air 04/04/22 20:30 87 27 103/64 98 Room Air 04/04/22 18:53 99 Room Air 04/04/22 18:51 Room Air 04/04/22 18:15 98 Nasal Cannula 2.00 04/04/22 18:00 36.4 99 16 157/132 (140) 94 Room Air I & O 04/05/22 07:00 Intake Total 950 ml Output Total 1950 ml Balance -1000 ml Height & Weight Height: '" Weight: lbs. oz. kg; 24.12 BMI Method: General Appearance: No Apparent Distress Respiratory: Other (MUCH IMPROVEMENT IN LUNG SOUNDS, MILD BIBASILAR RALES RESIDUAL) Cardiovascular: Regular Rate, Rhythm, No Edema, No JVD, No Murmur Capillary Refill: Less Than 3 Seconds Gastrointestinal: non tender, soft Results Lab Laboratory Tests 04/04/22 18:10 04/05/22 04:44 Assessment/Plan Assessment/Plan 1 CECILIA GILES MD Apr 05, 2022 10:20
--- NOTE | 2022-04-05 10:56 | History & Physical-Hospitalist ---
History of Present Illness HPI/Chief Complaint Patient is 82-year-old who presented to the emergency department due to shortness of breath. He has had a cough and shortness of breath for 5 weeks and he was seen by his primary care physician last month and started on antibiotics. Despite this he has continued to worsen and decided to come to the emergency department because he could hardly talk. Patient states that he is feeling much better today and breathing far easier. He denies any previous history of similar symptoms. He denies any heart or lung issues. He was found to be in heart failure yesterday in the emergency department and treated with Lasix. He states he is peed many times since then and is breathing much easier now. He is on room air. He does admit to having chronic kidney disease and he does see a scrap collector though he is unsure of his baseline creatinine or GFR. He was found to have an elevated troponin as well of 0.48 which is trended down to 0.441 this morning. He denies any chest pain. Source: patient Date Seen 04/05/22 Time Seen by a Provider: 07:30 Attending Physician Christopher Barrow MD PCP Admitting Physician: Rodger Raza MD Attending Physician: Rodger Raza MD Referring Physician Date of Admission Apr 04, 2022 at 7:12 pm Home Medications & Allergies Home Medications Reviewed patient Home Medication Reconciliation performed by pharmacy medication reconciliations pyrotechnician and/or nursing. Patients Allergies have been reviewed. Allergies Allergies Coded Allergies No Known Allergies (Unverified Allergy, Unknown, 03/06/22) Past Rbqebzl-Seceel-Paoikn Hx Patient Social History Tobacco Use?: No Tobacco type used: Cigarettes Smoking Status: Former Smoker Smokeless Tobacco Frequency: Never a User Use of E-Cig and/or Vaping dev: No Use of E-Cig and/or Vaping Arslan: Never a User Substance use?: No Alcohol Use?: No Pt feels they are or have been: No Immunizations Up To Date Date of Influenza Vaccine: Dec 23, 2021 Current Status Advance Directives: No Communicates: Verbally Primary Language: Arabic Preferred Spoken Language: Arabic Is interpretation needed?: No Sensory deficits: Vision impairment Implanted or Applied Medical D: None Past Medical History Surgeries: Eye Surgery, Tonsillectomy High Cholesterol, Hypertension Renal Failure Gout Hypothyroidsim Cataract Blood Disorders: Yes (ANEMIA) Family Medical History SOCIAL HISTORY: -SMOKED 2-1 PPD, QUIT 10 YEARS AGO -DENIES ETOH -DENIES DRUG USE Review of Systems Constitutional: see HPI Physical Exam Physical Exam Vital Signs Vital Signs - First Documented 04/04/22 04/04/22 04/04/22 18:00 18:15 21:43 Temp 36.4 Pulse 99 Resp 16 B/P (MAP) 157/132 (140) Pulse Ox 94 O2 Delivery Room Air O2 Flow Rate 2.00 FiO2 21 Capillary Refill : Less Than 3 Seconds Height, Weight, BMI Height: '" Weight: lbs. oz. kg; 24.12 BMI Method: General Appearance: No Apparent Distress, Thin Respiratory: Lungs Clear, No Respiratory Distress Cardiovascular: Regular Rate, Rhythm, No Murmur Gastrointestinal: Normal Bowel Sounds, Non Tender, Soft Extremity: Normal Capillary Refill, No Calf Tenderness, No Pedal Edema Neurologic/Psychiatric: Alert, Oriented x3, Normal Mood/Affect Skin: Normal Color, Warm/Dry Results Results/Procedures Labs Laboratory Tests 04/04/22 18:10 04/05/22 04:44 Patient resulted labs reviewed. Imaging: Reviewed Imaging Report Imaging [facility] [place] [place] [place] NAME: RUSLAN DUGGAN [facility] REC#: [id number] PT STATUS: ADM IN : 1940 PHYSICIAN: JAMEY FIELDS DO ADMIT DATE: 04/04/22/ICU Signed Date of Exam:04/04/22 CHEST 1 VIEW, AP/PA ONLY INDICATION: Dyspnea. EXAMINATION: AP view of the chest was obtained. COMPARISON: There is no previous study for comparison. FINDINGS: Heart size is at the upper limits of normal. There is pulmonary venous congestion. There is diffuse mixed interstitial and alveolar density which has a perihilar and basilar predominance. No pneumothorax is seen. There is no significant pleural fluid. IMPRESSION: Findings are suggestive of extensive pulmonary edema likely on the basis of congestive heart failure or other acute cardiac decompensation. Clinical correlation and follow-up study would be useful. Dictated by: Dictated on workstation # [id number] Dict: 04/04/22 1846 Trans: 04/05/22 0545 [facility] [id number] Interpreted by: SHADI DUNLAP MD Electronically signed by: SHADI DUNLAP MD 04/05/22 0545 Assessment/Plan Admission Diagnosis Acute hypoxic respiratory failure CKD Stage 4 Elevated troponin Likley multifactorial in nature but CHF large component Diuresed well with lasix 1L out overnight Continue Lasix Will attempt to get records form neprhology regarding jim renal function Discussed with Dr Barrow and last creatinine on file was from 2019 in the 2s Cardiology consulted, appreciate recs Troponin stable V/q Scan pending as had elevated d-dimer PARISH PEREIRA MD Apr 05, 2022 10:56 am
--- NOTE | 2022-04-05 11:51 | Diagnostic Imaging Report ---
INDICATION: CHF and pneumonia. TECHNIQUE: Patient was administered 5.4 mCi technetium-99m MAA intravenously, and imaging over the chest was performed in multiple obliquities. COMPARISON: Correlation is made with chest radiograph from earlier today. FINDINGS: There appears to be a large perfusion defect involving the left upper lobe. There is also a moderate-sized perfusion defect involving the right lower lobe posteriorly. IMPRESSION: Bilateral large perfusion defects. The findings would be consistent with high probability for pulmonary emboli. Dictated by: Dictated on workstation # [id number]
--- NOTE | 2022-04-05 12:44 | Consultation-Cardiology ---
HPI-Cardiology Cardiology Consultation: Date of Consultation 04/05/22 Time Seen by a Provider: 09:30 Date of Admission Attending Physician Christopher Barrow MD Admitting Physician Admitting Physician: Rodger Raza MD Attending Physician: Rodger Raza MD Consulting Physician LARISSA QUINTERO MD, MA, FACP, FACC, [facility] [place], CCDS HPI: Chief Complaint: Progressive dyspnea Mr. Hernandez is an 82 yr old male admitted to ICU 10 from the ED with c/o progressive dyspnea and "chest congestion" over the course of the last several weeks. He states he had been to see his PCP and was started on abx tx and steroid tx. He reports he felt yesterday he could not catch his breath so he took his steroid a few times yesterday (oral steroid), but continued to feel more SOB prompting him to the ED. He reports freq cough which is productive at times. No c/o CP, palpitations, syncope, near syncope or LE swelling. He reports he follows with Dr. Nichols of nephrology services. He reports his breathing is much better this morning. Review of Systems-Cardiology Review of Systems Constitutional: No chills, No fever; malaise Eyes: No vision change Ears/Nose/Throat: No epistaxis, No recent hearing loss Respiratory: As described under HPI Cardiovascular: As described under HPI Gastrointestinal: No constipation; diarrhea (yesterday); No nausea, No vomiting Genitourinary: No dysuria, No hematuria Musculoskeletal: no symptoms reported Skin: No rash on exposed areas, No ulcerations on exposed areas AHY-Vnnvkx-Jwknwc Hx Patient Social History Smoking Status: Former Smoker Have you traveled recently?: No Alcohol Use?: No Pt feels they are or have been: No Tobacco type used: Cigarettes Immunizations Up To Date Date of Influenza Vaccine: Dec 23, 2021 Past Medical History PMH As described under Assessment. Family Medical History Family Medical History: No reported family h/o CAD Allergies and Home Medications Allergies Coded Allergies: No Known Allergies (Unverified Allergy, Unknown, 03/06/22) Patient Home Medication List Home Medication List Reviewed: Yes Allopurinol (Allopurinol) 100 Mg Tablet, 100 MG PO DAILY, (Reported) Entered as Reported by: ARIE PICHARDO on 03/06/22 9653 Atorvastatin Calcium (Atorvastatin Calcium) 40 Mg Tablet, 40 MG PO DAILY, (Reported) Entered as Reported by: ARIE PICHARDO on 03/06/22 143 Calcitriol (Calcitriol) 0.25 Mcg Capsule, 0.25 MCG PO DAILY, (Reported) Entered as Reported by: ARIE PICHARDO on 03/06/221432 Diltiazem HCl (Diltiazem 24Hr ER) 120 Mg Cap.er.24h, 120 MG PO DAILY, (Reported) Entered as Reported by: ARIE PICHARDO on 03/06/22 143 Isosorbide Mononitrate (Isosorbide Mononitrate ER) 60 Mg Tab, 60 MG PO DAILY, (Reported) Entered as Reported by: ARIE PICHARDO on 03/06/22 143 Levothyroxine Sodium (Levothyroxine) 50 Mcg Capsule, 50 MCG PO, (Reported) Entered as Reported by: ARIE PICHARDO on 03/06/221432 Sodium Bicarbonate (Sodium Bicarbonate) 650 Mg Tablet, 1,300 MG PO DAILY, (Reported) Entered as Reported by: ARIE PICHARDO on 03/06/221432 Physical Exam-Cardiology Physical Exam Vital Signs/I&O 04/05/22 04/05/22 04/05/22 04/05/22 01:00 01:00 02:00 03:00 Pulse 81 89 58 60 Resp 18 23 26 B/P (MAP) 105/81 (89) 85/65 (72) 90/71 (77) Pulse Ox 95 96 97 O2 Delivery Room Air Room Air Room Air 04/05/22 04/05/22 04/05/22 04/05/22 03:47 04:00 04:18 05:00 Temp 36.3 Pulse 63 63 Resp 16 16 B/P (MAP) 99/70 (80) 106/77 (87) Pulse Ox 98 96 97 O2 Delivery Room Air Room Air Room Air 04/05/22 04/05/22 04/05/22 04/05/22 06:00 07:00 07:00 07:45 Pulse 61 58 67 Resp 17 16 B/P (MAP) 103/80 (88) 115/87 (96) Pulse Ox 98 98 99 O2 Delivery Room Air Room Air Room Air O2 Flow Rate 0.00 04/05/22 04/05/22 04/05/22 04/05/22 07:54 08:00 08:00 09:00 Temp 36.0 Pulse 78 67 Resp 28 10 B/P (MAP) 113/80 (91) 120/85 (97) Pulse Ox 98 97 97 O2 Delivery Room Air Room Air Room Air 04/05/22 04/05/22 04/05/22 10:00 12:00 12:19 Temp 36.5 Pulse 76 85 Resp 18 25 B/P (MAP) 130/105 (113) 180/160 (167) Pulse Ox 98 100 O2 Delivery Room Air Room Air 04/05/22 00:00 Intake Total 50 ml Output Total 975 ml Balance -925 ml Capillary Refill : Less Than 3 Seconds Constitutional: AAO x 3, well-developed, well-nourished HEENT: PERRL, hearing is well preserved, oral hygience is good Neck: carotid bruit (Right side), carotid pulses are 2 + bilaterally Respiratory: No accessory muscle use, No respiratory distress; chest expansion is symmetric, chest is bilaterally symmetric, lungs clear to auscultation Cardiovascular: regular rate-rhythm; No JVD; S1 and S2 Gastrointestinal: No tender; soft, round, audible bowel sounds Extremities: no lower extremity edema bilateral Neurologic/Psychiatric: grossly intact (moves all extremities) Skin: No rash on exposed areas, No ulcerations on exposed areas Data Review Labs Laboratory Tests 04/04/22 18:10: White Blood Count 9.8, Red Blood Count 3.84L, Hemoglobin 9.8L, Hematocrit 32L, Mean Corpuscular Volume 82, Mean Corpuscular Hemoglobin 26, Mean Corpuscular Hemoglobin Concent 31L, Red Cell Distribution Width 18.5H, Platelet Count 353, Mean Platelet Volume 9.3, Immature Granulocyte % (Auto) 1, Neutrophils (%) (Auto) 51, Lymphocytes (%) (Auto) 44, Monocytes (%) (Auto) 4, Eosinophils (%) (Auto) 0, Basophils (%) (Auto) 0, Neutrophils # (Auto) 4.9, Lymphocytes # (Auto) 4.3H, Monocytes # (Auto) 0.4, Eosinophils # (Auto) 0.0, Basophils # (Auto) 0.0, Immature Granulocyte # (Auto) 0.1, Erythrocyte Sedimentation Rate > 140H, Prothrombin Time 13.5, INR Comment 1.0, Activated Partial Thromboplast Time 30, D-Dimer 5.69H, Sodium Level 135, Potassium Level 4.6, Chloride Level 108H, Carbon Dioxide Level 17L, Anion Gap 10, Blood Urea Nitrogen 62H, Creatinine 4.26H, Estimat Glomerular Filtration Rate 13, BUN/Creatinine Ratio 15, Glucose Level 111H, Lactic Acid Level 2.00, Calcium Level 9.6, Corrected Calcium 10.5H, Magnesium Level 1.9, Total Bilirubin 0.2, Aspartate Amino Transf (AST/SGOT) 24, Alanine Aminotransferase (ALT/SGPT) 16, Alkaline Phosphatase 71, Total Creatine Kinase 34, Creatine Kinase MB 2.1, Myoglobin 127.6H, Troponin I 0.480*H, C- Reactive Protein High Sensitivity 6.49H, B-Type Natriuretic Peptide 1600.6H, Total Protein 9.0H, Albumin 2.9L, Procalcitonin 0.64H 04/04/22 18:12: Influenza Type A (RT-PCR) Not Detected, Influenza Type B (RT-PCR) Not Detected, SARS-CoV-2 RNA (RT-PCR) Not Detected 04/04/22 18:58: Urine Color YELLOW, Urine Clarity CLEAR, Urine pH 6.0, Urine Specific [place] 1.020, Urine Protein 2+H, Urine Glucose (UA) TRACEH, Urine Ketones NEGATIVE, Urine Nitrite NEGATIVE, Urine Bilirubin NEGATIVE, Urine Urobilinogen 0.2, Urine Leukocyte Esterase NEGATIVE, Urine RBC (Auto) 1+H, Urine RBC 2-5H, Urine WBC 0- 2, Urine Squamous Epithelial Cells 2-5, Urine Crystals NONE, Urine Bacteria TRACE, Urine Casts PRESENT, Urine Hyaline Casts 0-2H, Urine Mucus NEGATIVE, Urine Culture Indicated NO 04/04/22 21:37: Troponin I 0.430*H 04/05/22 00:43: Troponin I 0.441*H 04/05/22 04:44: White Blood Count 8.1, Red Blood Count 3.01L, Hemoglobin 7.7#L, Hematocrit 25L, Mean Corpuscular Volume 81, Mean Corpuscular Hemoglobin 26, Mean Corpuscular Hemoglobin Concent 31L, Red Cell Distribution Width 18.4H, Platelet Count 274, Mean Platelet Volume 9.9, Immature Granulocyte % (Auto) 1, Neutrophils (%) (Auto) 80H, Lymphocytes (%) (Auto) 18, Monocytes (%) (Auto) 1, Eosinophils (%) (Auto) 0, Basophils (%) (Auto) 0, Neutrophils # (Auto) 6.5, Lymphocytes # (Auto) 1.4, Monocytes # (Auto) 0.1, Eosinophils # (Auto) 0.0, Basophils # (Auto) 0.0, Immature Granulocyte # (Auto) 0.1, Sodium Level 131L, Potassium Level 5.2H, Chloride Level 105, Carbon Dioxide Level 14L, Anion Gap 12, Blood Urea Nitrogen 66H, Creatinine 4.36H, Estimat Glomerular Filtration Rate 13, BUN/Creatinine Ratio 15, Glucose Level 265H, Calcium Level 8.9, Corrected Calcium 10.1, Phosphorus Level 5.1H, Magnesium Level 1.7, Total Bilirubin 0.2, Aspartate Amino Transf (AST/SGOT) 18, Alanine Aminotransferase (ALT/SGPT) 13, Alkaline Phosphatase 62, B-Type Natriuretic Peptide 1469.6H, Total Protein 7.8, Albumin 2.5L, Triglycerides Level 118, Cholesterol Level 130, LDL Cholesterol Direct 72, VLDL Cholesterol 24, HDL Cholesterol 31L, Thyroid Stimulating Hormone (TSH) 2.09, Free Thyroxine 0.83 A/P-Cardiology Assessment/Admission Diagnosis Progressive dyspnea - likely multifactorial d/t acute diastolic CHF and pneumonia; ?PE - echo on 04/05/22: LVEF 50-55%, apical hypokinesis, grade 1 diastolic dysfunction, mild to mod MR, AoV sclerosis w/o stenosis, inablility to estimate PASP Troponin elevation - probably type 2 ND secondary to acute CHF and CKD (no cp, troponin flat at approx 0.45) Anemia - reports h/o iron deficiency anemia Carotid dz - Internal carotid art disease: 25-40% bilat stenoses reported on carotid u/s of 10/27/15 Possible R subclavian steal syndrome reported on carotid u/s of 10/27/15 (retrogr raul flow in R vertebral artery). MRA of neck of 11/03/15 was a poor study, but there was suggestion of high-grade stenosis of the prox R subclavian and of the origin of the right external carotid CKD stage 4 - followed by Dr. Nichols Hypercholesterolemia Hypertension Abnormal ECG: ECG of 11/07/15 shows RBBB Hypothyroidism - being treated with thyroid replacemnt therapy H/O tobacco use - quit in 2012 Discussion and Recomendations * Complex management due to multiple advanced comorbidities * Diuretics as needed and as tolerated * Add beta-jurgen * Continue ASA * Not suitable for IRIS-inhib/ARB because of advanced renal failure and mild hyperkalemia * Monitor labs closely because of renal failure (CKD 4) * Lovenox to be managed by Hospitalist svce until w/u of PE completed * If renal continue to worsen, we recommend transfer to a tertiary care facility LARISSA QUINTERO MD FACP FAC CCDS Apr 05, 2022 12:44
[2022-04-05] MEDS: VASOPRESSIN INJECTION 20 UNIT in NS (IVPB) 100 ML IV SCH (12:58)
[2022-04-05] MEDS ORDERED: LEVO50TA6 PO ×2 (13:22)
[2022-04-05] MEDS ORDERED: FERR325T18 PO (13:22)
[2022-04-05] MEDS ORDERED: MECL-149 PO (13:22)
[2022-04-05] MEDS ORDERED: OMEG100032 PO (13:22)
[2022-04-05] MEDS ORDERED: MULT-1136 PO (13:22)
[2022-04-05 14:23] LABS: CALCIUM 9.1 MG/DL (8.5-10.1)
[2022-04-05 14:27] LABS: CREATININE SERUM 4.3 MG/DL (0.60-1.30)
--- NOTE | 2022-04-05 15:17 | Diagnostic Imaging Report ---
PROCEDURE: US carotid duplex, bilateral. TECHNIQUE: Multiple real-time grayscale images were obtained over the carotid arteries in various projections, bilaterally. Additional spectral analysis and color Doppler duplex images were also obtained. INDICATION: History of subclavian steal with retrograde flow in the right vertebral artery. COMPARISON: Study is compared with exam from 10/27/2015. FINDINGS: Today the vertebral flow bilaterally was up the neck in normal direction but with elevated velocities ,greater left than right, on the left 274 cm/s and on the right 141 cm/s. Vertebral origin stenoses could not be excluded. There is mild elevation of the right ICA/CCA percent ratios at 2.3 today with peak right ICA systolic velocities of 124 cm/s. There is mild intimal thickening and scattered calcified plaques. There is normal carotid laminar color Doppler blood flow. No turbulent segment. No hemodynamically significant focal stenosis. IMPRESSION: 1. Elevated accelerated velocities but normal direction of flow in the bilateral vertebrals, greater left. 2. Right greater than left carotid atherosclerotic plaques without hemodynamically significant degrees of carotid arterial stenosis or segmental occlusion. Parameters based on the consensus panel Guthrie-Scale and Doppler ultrasound criteria published January 2003, Radiology, Volume 229. DOPPLER (peak systolic velocity M/S Right Left CCA 0.53 0.66 ICA Proximal 0.74 0.74 ICA Mid 1.17 0.80 ICA Distal 1.24 0.85 RATIO 2.34 1.28 ECA 1.67 1.53 VERT 1.41 2.74 Dictated by: Dictated on workstation # [id number]
[2022-04-05] MEDS: LACTATED RINGERS 1,000 ML IV SCH (17:41)
[2022-04-05] MEDS ORDERED: ENOXAPARIN 80 MG/0.8 ML (LOVENOX) SYR SC SCH (19:00)
[2022-04-05 19:24] VITALS: BP 113/79
[2022-04-05] MEDS: meTOprolol TARTRATE 25 MG (LOPRESSOR) TABLET PO SCH (19:30)
[2022-04-05 23:50] VITALS: BP 111/69
[2022-04-06 03:36] VITALS: BP 117/78
[2022-04-06] MEDS: CEFEPIME 1,000 MG/NS 50 ML IVPB IV SCH ×2 (06:08)
[2022-04-06 06:09] LABS: BASOPHILS % (AUTO) 0 % (0-10); EOSINOPHILS % (AUTO) 0 % (0-10); HEMATOCRIT 26 % (40-54); HEMOGLOBIN 8.2 g/dL (13.3-17.7); LYMPHOCYTES # (AUTO) 3.1 10^3/uL (1.0-4.0); LYMPHOCYTES % (AUTO) 34 % (12-44); MEAN CORPUSCULAR HEMOGLOBIN 26 pg (25-34); MEAN CORPUSCULAR HGB CONC 32 g/dL (32-36); MEAN CORPUSCULAR VOLUME 80 fL (80-99); MEAN PLATELET VOLUME 9.6 fL (9.0-12.2); MONOCYTES # (AUTO) 0.6 10^3/uL (0.0-1.0); MONOCYTES % (AUTO) 7 % (0-12); NEUTROPHILS # (AUTO) 5.4 10^3/uL (1.8-7.8); NEUTROPHILS % (AUTO) 58 % (42-75); PLATELET COUNT 316 10^3/uL (130-400); WHITE BLOOD COUNT 9.2 10^3/uL (4.3-11.0)
[2022-04-06 06:26] LABS: ALBUMIN 2.6 GM/DL (3.2-4.5); POTASSIUM 4.5 MMOL/L (3.6-5.0)
[2022-04-06 06:27] LABS: CALCIUM 8.8 MG/DL (8.5-10.1)
[2022-04-06 06:28] LABS: TOTAL PROTEIN 7.6 GM/DL (6.4-8.2)
[2022-04-06 06:30] LABS: BILIRUBIN,TOTAL 0.2 MG/DL (0.1-1.0)
[2022-04-06 06:32] LABS: CREATININE SERUM 4.23 MG/DL (0.60-1.30)
[2022-04-06 08:07] VITALS: BP 120/72
[2022-04-06 08:08] VITALS: BP 120/72
[2022-04-06] MEDS: meTOprolol TARTRATE 25 MG (LOPRESSOR) TABLET PO SCH (08:21)
[2022-04-06] MEDS: ASPIRIN E.C. 81 MG (ECOTRIN) TAB PO SCH (08:21)
[2022-04-06] MEDS: LACTATED RINGERS 1,000 ML IV SCH (08:47)
[2022-04-06] MEDS ORDERED: FUROSEMIDE 40 MG/4 ML INJ (LASIX) IVP SCH (09:00)
--- NOTE | 2022-04-06 11:10 | Progress Note - Cardiology ---
Cardiology SOAP Progress Note Subjective: Sitting up in bed States he feels great No c/o CP, SOB or palpitations Objective: I&O/Vital Signs 04/05/22 04/06/22 04/06/22 04/06/22 23:50 01:00 03:36 06:41 Temp 37.2 36.1 Pulse 67 62 64 Resp 16 16 B/P (MAP) 111/69 (83) 117/78 (91) Pulse Ox 99 100 100 O2 Delivery Room Air Room Air Room Air 04/06/22 04/06/22 04/06/22 07:00 08:07 08:08 Temp 36.8 36.8 Pulse 57 60 60 Resp 18 18 B/P (MAP) 120/72 (88) 120/72 (88) Pulse Ox 98 98 O2 Delivery Room Air Room Air 04/06/22 00:00 Intake Total 1150 ml Output Total 625 ml Balance 525 ml Constitutional: AAO x 3, well-developed, well-nourished Respiratory: No accessory muscle use, No respiratory distress; chest expansion is symmetric, chest is bilaterally symmetric, lungs clear to auscultation Cardiovascular: regular rate-rhythm; No JVD; S1 and S2 Gastrointestional: No tender; soft, round, audible bowel sounds Extremities: no lower extremity edema bilateral Neurologic/Psychiatric: grossly intact (moves all extremities) Skin: No rash on exposed areas, No ulcerations on exposed areas Results/Procedures: Labs Laboratory Tests 04/05/22 14:00: Sodium Level 133L, Potassium Level 5.0, Chloride Level 104, Carbon Dioxide Level 20L, Anion Gap 9, Blood Urea Nitrogen 69H, Creatinine 4.30H, Estimat Glomerular Filtration Rate 13, BUN/Creatinine Ratio 16, Glucose Level 183H, Calcium Level 9.1 04/06/22 05:55: Sodium Level 134L, Potassium Level 4.5, Chloride Level 108H, Carbon Dioxide Level 15L, Anion Gap 11, Blood Urea Nitrogen 76H, Creatinine 4.23H, Estimat Glomerular Filtration Rate 13, BUN/Creatinine Ratio 18, Glucose Level 143H, Calcium Level 8.8, White Blood Count 9.2, Red Blood Count 3.21L, Hemoglobin 8.2L , Hematocrit 26L, Mean Corpuscular Volume 80, Mean Corpuscular Hemoglobin 26, Mean Corpuscular Hemoglobin Concent 32, Red Cell Distribution Width 18.4H, Platelet Count 316, Mean Platelet Volume 9.6, Immature Granulocyte % (Auto) 1, Neutrophils (%) (Auto) 58, Lymphocytes (%) (Auto) 34, Monocytes (%) (Auto) 7, Eosinophils (%) (Auto) 0, Basophils (%) (Auto) 0, Neutrophils # (Auto) 5.4, Lymphocytes # (Auto) 3.1, Monocytes # (Auto) 0.6, Eosinophils # (Auto) 0.0, Basophils # (Auto) 0.0, Immature Granulocyte # (Auto) 0.1, Corrected Calcium 9.9, Total Bilirubin 0.2, Aspartate Amino Transf (AST/SGOT) 19, Alanine Aminotransferase (ALT/SGPT) 12, Alkaline Phosphatase 55, Total Protein 7.6, Albumin 2.6L Microbiology 04/04/22 MRSA Screen - Final, Complete MRSA not isolated Laboratory Tests 04/04/22 18:10 04/05/22 04:44 04/05/22 14:00 04/06/22 05:55 Procedures NAME: OGLA LIDIALINA [facility] REC#: [id number] PT STATUS: ADM IN : 1940 PHYSICIAN: JAY IBARRA MD ADMIT DATE: 04/04/22/ICU Signed Date of Exam:04/05/22 LUNG SCAN PERFUSION INDICATION: CHF and pneumonia. TECHNIQUE: Patient was administered 5.4 mCi technetium-99m MAA intravenously, and imaging over the chest was performed in multiple obliquities. COMPARISON: Correlation is made with chest radiograph from earlier today. FINDINGS: There appears to be a large perfusion defect involving the left upper lobe. There is also a moderate-sized perfusion defect involving the right lower lobe posteriorly. IMPRESSION: Bilateral large perfusion defects. The findings would be consistent with high probability for pulmonary emboli. Dictated by: Dictated on workstation # [id number] Dict: 04/05/22 1143 Trans: 04/05/22 1600 [id number] Interpreted by: JUANA WONG MD Electronically signed by: JUANA WONG MD 04/05/22 1600 NAME: RUSLAN DUGGAN [facility] REC#: [id number] PT STATUS: ADM IN : 1940 PHYSICIAN: CHARISSA OROZCO ADMIT DATE: 04/04/22/ICU Signed Date of Exam:04/05/22 US CAROTID [place] COMPLETE [id number] PROCEDURE: US carotid duplex, bilateral. TECHNIQUE: Multiple real-time grayscale images were obtained over the carotid arteries in various projections, bilaterally. Additional spectral analysis and color Doppler duplex images were also obtained. INDICATION: History of subclavian steal with retrograde flow in the right vertebral artery. COMPARISON: Study is compared with exam from 10/27/2015. FINDINGS: Today the vertebral flow bilaterally was up the neck in normal direction but with elevated velocities ,greater left than right, on the left 274 cm/s and on the right 141 cm/s. Vertebral origin stenoses could not be excluded. There is mild elevation of the right ICA/CCA percent ratios at 2.3 today with peak right ICA systolic velocities of 124 cm/s. There is mild intimal thickening and scattered calcified plaques. There is normal carotid laminar color Doppler blood flow. No turbulent segment. No hemodynamically significant focal stenosis. IMPRESSION: 1. Elevated accelerated velocities but normal direction of flow in the bilateral vertebrals, greater left. 2. Right greater than left carotid atherosclerotic plaques without hemodynamically significant degrees of carotid arterial stenosis or segmental occlusion. Parameters based on the consensus panel Guthrie-Scale and Doppler ultrasound criteria published January 2003, Radiology, Volume 229. DOPPLER (peak systolic velocity M/S Right Left CCA 0.53 0.66 ICA Proximal 0.74 0.74 ICA Mid 1.17 0.80 ICA Distal 1.24 0.85 RATIO 2.34 1.28 ECA 1.67 1.53 VERT 1.41 2.74 Dictated by: Dictated on workstation # [id number] Dict: 04/05/22 1509 Trans: 04/05/22 1706 [id number] Interpreted by: SHADI MILTON Electronically signed by: SHADI MILTON 04/05/22 1706 A/P: Assessment: Progressive dyspnea - likely multifactorial d/t acute diastolic CHF and pneumonia and PE - echo on 04/05/22: LVEF 50-55%, apical hypokinesis, grade 1 diastolic dy sfunction, mild to mod MR, AoV sclerosis w/o stenosis, inablility to estimate PASP PE - high probability based on VQ lung scan of 04-05-22 - anticoagulation has been started by medical services Troponin elevation - probably type 2 NC secondary to acute CHF and CKD (no cp, troponin flat at approx 0.45) Anemia - reports h/o iron deficiency anemia Carotid dz - Internal carotid art disease: 25-40% bilat stenoses reported on carotid u/s of 10/27/15 Possible R subclavian steal syndrome reported on carotid u/s of 10/27/15 (retrograde flow in R vertebral artery). MRA of neck of 11/03/15 was a poor elizabeth dy, but there was suggestion of high-grade stenosis of the prox R subclavian and of the origin of the right external carotid CKD stage 4 - followed by Dr. Nichols Hypercholesterolemia Hypertension Abnormal ECG: ECG of 11/07/15 shows RBBB Hypothyroidism - being treated with thyroid replacemnt therapy H/O tobacco use - quit in 2012 Plan: * Complex management due to multiple advanced comorbidities * Suspected PE based on VQ lung scan from 04-05-22 - anticoagulation has been in itiated by medical services * Continue beta-jurgen * Continue ASA * Change Lasix to oral * Renal function mildly improved from admission * Not suitable for IRIS-inhib/ARB because of advanced renal failure and mild hyperkalemia * Monitor labs closely because of renal failure (CKD 4) * If renal function worsens, we recommend transfer to a tertiary care facility CHARISSA OROZCO Apr 06, 2022 11:10
[2022-04-06 11:28] VITALS: BP 122/76
--- NOTE | 2022-04-06 12:17 | Discharge Inst-Simple/Standard ---
Discharge Inst-Standard Discharge Medications New, Converted or Re-Newed RX: Transmitted to Pharmacy Patient Instructions/Follow Up Plan of Care/Instructions/FU: Please continue to take your medications as written. Please follow up with your primary care doctor to follow up this hospital stay. Activity as Tolerated: Yes Discharge Diet: Low Sodium Diet Return to The Hospital For: Chest pain, shortness of breath, fever, weakness, if you feel you are getting worse. PARISH PEREIRA MD Apr 06, 2022 12:17
[2022-04-06] MEDS ORDERED: RIVA1TAB PO (13:23)
[2022-04-06] MEDS ORDERED: FURO40TA4 PO (13:23)
[2022-04-06 15:23] VITALS: BP 121/79
--- NOTE | 2022-04-06 15:35 | Progress Note - Cardiology ---
Cardiology SOAP Progress Note Subjective: Shortness of breath has improved/resolved No cp No palp or syncope No swelling No n/v/d Wishes to go home Objective: I&O/Vital Signs 04/06/22 04/06/22 04/06/22 04/06/22 03:36 06:41 07:00 08:00 Temp 36.1 Pulse 64 57 Resp 16 B/P (MAP) 117/78 (91) Pulse Ox 100 100 98 O2 Delivery Room Air Room Air Room Air O2 Flow Rate 0.00 04/06/22 04/06/22 04/06/22 04/06/22 08:07 08:08 11:28 12:49 Temp 36.8 36.8 36.8 Pulse 60 60 60 59 Resp 18 18 18 B/P (MAP) 120/72 (88) 120/72 (88) 122/76 (91) Pulse Ox 98 98 98 O2 Delivery Room Air Room Air Room Air 04/06/22 15:23 Temp 36.4 Pulse 69 Resp 19 B/P (MAP) 121/79 (93) Pulse Ox 97 O2 Delivery Room Air 04/06/22 00:00 Intake Total 1150 ml Output Total 625 ml Balance 525 ml Constitutional: AAO x 3, well-developed, well-nourished Respiratory: No accessory muscle use, No respiratory distress; chest expansion is symmetric, chest is bilaterally symmetric, lungs clear to auscultation Cardiovascular: regular rate-rhythm; No JVD; S1 and S2 Gastrointestional: No tender; soft, round, audible bowel sounds Extremities: no lower extremity edema bilateral Neurologic/Psychiatric: other (moves all limgs equally) Skin: No rash on exposed areas, No ulcerations on exposed areas Results/Procedures: Labs Laboratory Tests 04/06/22 05:55: White Blood Count 9.2, Red Blood Count 3.21L, Hemoglobin 8.2L, Hematocrit 26L, Mean Corpuscular Volume 80, Mean Corpuscular Hemoglobin 26, Mean Corpuscular Hemoglobin Concent 32, Red Cell Distribution Width 18.4H, Platelet Count 316, Mean Platelet Volume 9.6, Immature Granulocyte % (Auto) 1, Neutrophils (%) (Auto) 58, Lymphocytes (%) (Auto) 34, Monocytes (%) (Auto) 7, Eosinophils (%) (Auto) 0, Basophils (%) (Auto) 0, Neutrophils # (Auto) 5.4, Lymphocytes # (Auto) 3.1, Monocytes # (Auto) 0.6, Eosinophils # (Auto) 0.0, Basophils # (Auto) 0.0, Immature Granulocyte # (Auto) 0.1, Sodium Level 134L, Potassium Level 4.5, Chloride Level 108H, Carbon Dioxide Level 15L, Anion Gap 11, Blood Urea Nitrogen 76H, Creatinine 4.23H, Estimat Glomerular Filtration Rate 13, BUN/Creatinine Ratio 18, Glucose Level 143H, Calcium Level 8.8, Corrected Calcium 9.9, Total Bilirubin 0.2, Aspartate Amino Transf (AST/SGOT) 19, Alanine Aminotransferase (ALT/SGPT) 12, Alkaline Phosphatase 55, Total Protein 7.6, Albumin 2.6L Microbiology 04/04/22 MRSA Screen - Final, Complete MRSA not isolated Laboratory Tests 04/04/22 18:10 04/05/22 04:44 04/05/22 14:00 04/06/22 05:55 A/P: Assessment: Progressive dyspnea - likely multifactorial d/t acute diastolic CHF and pneumonia and PE - echo on 04/05/22: LVEF 50-55%, apical hypokinesis, grade 1 diastolic dysfunction, mild to mod MR, AoV sclerosis w/o stenosis, inablility to estimate PASP PE - high probability based on VQ lung scan of 04-05-22 - anticoagulation has been started by medical services Troponin elevation - probably type 2 SC secondary to acute CHF and CKD and PE (no cp, troponin flat at approx 0.45) Anemia - reports h/o iron deficiency anemia Carotid dz - Internal carotid art disease: 25-40% bilat stenoses reported on carotid u/s of 10/27/15 Possible R subclavian steal syndrome reported on carotid u/s of 10/27/15 (retrograde flow in R vertebral artery). MRA of neck of 11/03/15 was a poor study, but there was suggestion of high-grade stenosis of the prox R subclavian and of the origin of the right external carotid CKD stage 4 - followed by Dr. Nichols Hypercholesterolemia Hypertension Abnormal ECG: ECG of 11/07/15 shows RBBB Hypothyroidism - being treated with thyroid replacemnt therapy H/O tobacco use - quit in 2012 Plan: * Complex management due to multiple advanced comorbidities * Suspected PE based on VQ lung scan from 04-05-22 - anticoagulation has been initiated by Medical services * Continue beta-jurgen * Continue ASA * Change Lasix to oral * Not suitable for IRIS-inhib/ARB because of advanced renal failure and mild hyperkalemia * Monitor labs closely because of renal failure (CKD 4) * I discussed his case with Dr Street on the phone this am. Pt requests discharge and Dr Street approves. Ok for d/c from cardiac standpoint. Advised to return to ER in case of any recurrence or any new symptoms. He understands * Outpt f/u advised LARISSA QUINTERO MD FACP FACC CCDS Apr 06, 2022 15:35
[2022-04-06 16:40] VITALS: BP 121/79
--- NOTE | 2022-04-06 17:54 | Physician Query Clarification ---
Physician Query-General Query to Physician: The medical record reflects the following clinical scenario: The patient, in the setting of History/Risk factors: HTN, CKD, Clinical Findings: Per Dr. Yoselyn Beach "troponin probably type II AZ secondary to acute CHF and CKD," Troponin on admission 0.480 then 0.430 and 0.441, BNP 1600 on admission decreased slightly to 1469, Troponin monitoring, no chest pain, Dyspnea, Treatment: Cardiology consult, IV Lasix, ASA, no IRIS or ARB due to renal failure, Lovenox, Question: Do you agree with the impression of Type II AZ per Dr. Yoselyn Becah? 1. Yes; will Type II AZ, present on admission in the Progress Notes 2. No; will continue current documentation in the Progress Notes 3. Other; will document explanation of clinical findings 4. Clinically undetermined; no explanation for clinical findings Please clarify and document your clinical opinion in the Progress Notes and Discharge Summary including the definitive and/or presumptive diagnosis, (suspected or probable), related to the above clinical findings. Please include clinical findings supporting your diagnosis. In responding to this query, please exercise your independent professional judgment. The purpose of this communication is to more accurately reflect the complexity of your patients condition. The fact that a question is asked does not imply that any particular answer is desired or expected. Thank you for timely response to this clarification. Yue Jordan RN, MSN Clinical Supervisor Polishing [phone] [email or web address] PHYSICIAN RESPONSE: Based on the clinical findings in the record, please respond to the query above on this document as an addendum. Physician Response: Physician Response 1 If you have questions please contact: Block Sealer: Ext: Thank you for your time and cooperation. Clinical Supervisor Polishing/Block Sealer This is a permanent part of the medical record YUE JORDAN Apr 06, 2022 17:54 PARISH PEREIRA MD Apr 07, 2022 12:25
[2022-04-07] MEDS ORDERED: FUROSEMIDE 40 MG (LASIX) TAB PO SCH (09:00)
== END 2022-04-06 16:50 | disposition home or self-care (01) | DRG 280 ==
LOC: EDUNIT# 17:59 → ER 18:00 → ICU 19:12 → 4TH 04-05 17:06
PROVIDERS: ADMIT Internal Medicine; ATTEND Internal Medicine
DX: I13.0 Hypertensive heart and chronic kidney disease with heart failure and stage 1 through stage 4 chronic kidney disease, or unspecified chronic kidney disease (principal); I21.A1 Myocardial infarction type 2; I26.99 Other pulmonary embolism without acute cor pulmonale; J18.9 Pneumonia, unspecified organism; I50.31 Acute diastolic (congestive) heart failure; N18.4 Chronic kidney disease, stage 4 (severe); E87.20 Acidosis, unspecified; J44.0 Chronic obstructive pulmonary disease with (acute) lower respiratory infection; Z87.891 Personal history of nicotine dependence; E78.00 Pure hypercholesterolemia, unspecified; M10.9 Gout, unspecified; E03.9 Hypothyroidism, unspecified; Z20.822 Contact with and (suspected) exposure to COVID-19; I45.10 Unspecified right bundle-branch block; I77.9 Disorder of arteries and arterioles, unspecified; Z79.899 Other long term (current) drug therapy; Z79.890 Hormone replacement therapy
CPT/HCPCS: 36415; 71045; 80048; 80053; 80061; 81000; 82550; 82553; 83605; 83735; 83874; 83880; 84100; 84145; 84439; 84443; 84481; 84484; 85025; 85379; 85610; 85652; 85730; 86141; 87081; 87636; 93005; 93041; 93306; 93880; 94640; 94760

== ENCOUNTER 2022-12-04 21:48 | Emergency (ER) | payer MEDICARE ==
[~2022-12-04] VITALS: Ht 182.8 cm; Wt 79.8 kg
[~2022-12-04 21:48] MED LIST changes: +FERR325T18 PO; +FURO40TA4 PO; +LEVO50TA6 PO; +MECL-149 PO; +MULT-1136 PO; +OMEG100032 PO; +RIVA1TAB PO
[2022-12-04 22:37] LABS: ALBUMIN 2.2 GM/DL (3.2-4.5)
[2022-12-04 22:38] LABS: POTASSIUM 5.2 MMOL/L (3.6-5.0)
[2022-12-04 22:39] LABS: CALCIUM 9.1 MG/DL (8.5-10.1)
[2022-12-04 22:40] LABS: TOTAL PROTEIN 7.1 GM/DL (6.4-8.2)
[2022-12-04 22:42] LABS: BILIRUBIN,TOTAL 0.3 MG/DL (0.1-1.0)
--- NOTE | 2022-12-04 22:42 | ED Respiratory ---
General Chief Complaint: Respiratory Problems Stated Complaint: SOA Nursing Triage Note: PT ARRIVED BY [facility] WITH CC OF SOB THAT STARTED A COUPLE WEEKS AGO. PT STATES THAT HE TESTED NEG FOR COVID ON SATURDAY. Source: patient, EMS Exam Limitations: no limitations (MURRAY HOOPER) History of Present Illness Date Seen by Provider: Dec 04, 2022 Time Seen by Provider: 22:34 Initial Comments 82yo M with h/o CHF, HTN, PE, DM, and CKD stage 4 presents to the ED via EMS with c/o cough producing coffee ground-like sputum and associated SOA at night t hat started 2 weeks ago and has gotten progressively worse. Pt states that cough is only present at night and when he is laying flat. States that after coughing his becomes SOA but is not SOA otherwise. Improvement of symptoms with sleeping in his armchair. Pt also notes associated decreased appetite, loss of taste, sore throat, difficulty swallowing, hoarseness, and weakness. Pt notes that his difficulty swallowing is due to his sore throat and he has been having issue swallowing pills and other solid foods. States that decreased appetite occurs ~30minutes after eating with nausea that resolves on it's own. Weakness started ~1.5 weeks ago. Pt states that he was able to walk into scientologist before onset and now has difficulty getting out of bed due to his weakness. Pt tested negative for COVID via home test on 12/02. Denies nausea, vomiting, heartburn symptoms, CP, fevers, chills, diarrhea, abd pain, weight loss, hematemesis, and worsening leg swelling. Pt is on Eliquis and took dose today. Was recently prescribed "possibly steroids" by Dr. Corona 1hr prior to arrival. Has had 1 dose of prescribed medication. Timing/Duration: week, getting worse Severity: moderate Prior Episodes/Possible Cause: no prior episodes Modifying Factors: Improves With Lying Down (exacerbates), Improves With Other (sitting up at night improves symptoms) Associated Symptoms: No chest pain/soreness; cough (producing coffee-ground lik e sputum); No fever/chills, No nasal congestion; shortness of breath (secondary to coughing), sore throat (secondary to coughing); No wheezing (MURRAY HOOPER) Allergies and Home Medications Allergies Coded Allergies: No Known Allergies (Unverified Allergy, Unknown, 03/06/22) Patient Home Medication List Home Medication List Reviewed: Yes (MURRAY HOOPER) Home Medication List Reviewed: Yes (MIKEY SANDERS MD) Allopurinol (Allopurinol) 100 Mg Tablet, 100 MG PO DAILY, (Reported) Entered as Reported by: ARIE PICHARDO on 03/06/22 143 Atorvastatin Calcium (Atorvastatin Calcium) 40 Mg Tablet, 40 MG PO DAILY, (Reported) Entered as Reported by: ARIE PICHARDO on 03/06/22 143 Calcitriol (Calcitriol) 0.25 Mcg Capsule, 0.25 MCG PO DAILY, (Reported) Entered as Reported by: ARIE PICHARDO on 03/06/22 143 Diltiazem HCl (Diltiazem 24Hr ER) 120 Mg Cap.er.24h, 120 MG PO DAILY, (Reported) Entered as Reported by: ARIE PICHARDO on 03/06/22 143 Ferrous Sulfate (Ferrous Sulfate) 325 Mg (65 Mg Iron) Tablet, 325 MG PO DAILY, (Reported) Entered as Reported by: LINDA MADISON on 04/05/22 132 Furosemide (Furosemide) 40 Mg Tablet, 40 MG PO DAILY Prescribed by: PARISH PEREIRA on 04/06/22 1323 Isosorbide Mononitrate (Isosorbide Mononitrate ER) 60 Mg Tab, 60 MG PO DAILY, (Reported) Entered as Reported by: ARIE PICHARDO on 03/06/22 143 Levothyroxine Sodium (Levothyroxine Sodium) 50 Mcg Tablet, 50 MCG PO SNELL,TU,TH,SA, (Reported) Entered as Reported by: LINDA MADISON on 04/05/22 1322 Levothyroxine Sodium (Levothyroxine Sodium) 50 Mcg Tablet, 25 MCG PO MO,WE,FR, (Reported) Entered as Reported by: LINDA MADISON on 04/05/22 1322 Meclizine HCl (Meclizine HCl) 25 Mg Tablet, 25 MG PO Q8H PRN for DIZZINESS, (Reported) Entered as Reported by: LINDA MADISON on 04/05/22 1322 Multivitamin (Multivitamin) 1 Each Tablet, 1 EACH PO DAILY, (Reported) Entered as Reported by: LINDA MADISON on 04/05/22 1322 Magnolia-3/Dha/Epa/Fish Oil (Fish Oil 1,000 mg Softgel) 1,000 Mg (120 Mg-180 Mg) Capsule, 1,000 MG PO DAILY, (Reported) Entered as Reported by: LINDA MADISON on 04/05/22 1322 Rivaroxaban (Xarelto Starter Pack) 15 Mg (42)- 20 Mg (9) Tab.ds.pk, 1 EACH PO UD Prescribed by: PARISH PEREIRA on 04/06/22 1323 Sodium Bicarbonate (Sodium Bicarbonate) 650 Mg Tablet, 1,300 MG PO DAILY, (Reported) Entered as Reported by: ARIE PICHARDO on 03/06/22 1433 Review of Systems Review of Systems Constitutional: No chills, No fever; weakness; No weight loss EENTM: hoarseness, throat pain (secondary to cough ); No nose congestion Respiratory: cough (noctural producing coffee-ground like sputum), hemoptysis (possible), short of breath (secondary to coughing/laying flat) Cardiovascular: No chest pain; edema (chronic, no worsening) Gastrointestinal: No abdominal pain, No constipation, No diarrhea; dysphagia; No hematemesis, No heartburn; loss of appetite, nausea (~30 minutes after eating); No vomiting Genitourinary: no symptoms reported Musculoskeletal: no symptoms reported Skin: no symptoms reported Psychiatric/Neurological: No Symptoms Reported Hematologic/Lymphatic: No Symptoms Reported Immunological/Allergic: no symptoms reported (MURRAY HOOPER) All Other Systems Reviewed Negative Unless Noted: Yes (MURRAY HOOPER) Past Phaeegh-Lfstdo-Lgcqau Hx Patient Social History Tobacco Use?: No Smoking Status: Former Smoker (for ~50 years, quit 10yrs ago) Substance use?: No Alcohol Use?: No (MURRAY HOOPER) Immunizations Up To Date First/Initial COVID19 Vaccinat: UNKNOWN Second COVID19 Vaccination Sanchez: UNKNOWN Third COVID19 Vaccination Date: UNKNOWN (MURRAY HOOPER) Past Medical History Surgery/Hospitalization HX: HTN, DIABETIC, KIDNEY DISEASE Surgeries: Yes (BILATERAL CATARACT SURGERY 03/09/22) Eye Surgery, Tonsillectomy Respiratory: Yes (smoked till age 72) Pulmonary Embolism Cardiac: Yes (CHF) Chronic Edema/Swelling, High Cholesterol, Hypertension Neurological: No Genitourinary: Yes ("STAGE 4 RENAL FAILURE"--NO DIALYSIS--HAS SEEN DR. BENTLEY/NEPHROLOGY) Renal Failure Gastrointestinal: No Musculoskeletal: Yes Gout Endocrine: Yes Hypothyroidsim, Diabetes, Non-Insulin dep HEENT: Yes (BILATERAL CATARACTS 03/09/22) Cataract Cancer: No Psychosocial: No Integumentary: No Blood Disorders: Yes (ANEMIA) (MURRAY HOOPER) Family Medical History No Pertinent Family Hx SOCIAL HISTORY: -SMOKED 1/2-1 PPD, QUIT 10 YEARS AGO -DENIES ETOH -DENIES DRUG USE (MURRAY HOOPER) Physical Exam Vital Signs - First Documented 12/05/22 12/05/22 02:33 03:41 Resp 20 O2 Flow Rate 1.00 (MIKEY SANDERS MD) Capillary Refill : (MURRAY HOOPER) Height: '" Weight: lbs. oz. kg; 23.00 BMI Method: General Appearance: WD/WN, no apparent distress HEENT: PERRL/EOMI, TMs normal, other (dried blood located on soft palate) Neck: non-tender, lymphadenopathy (R) (anterior cervical LAD b/l of midline throat; nontender, hard and nonmobile), lymphadenopathy (L) Respiratory: chest non-tender, no respiratory distress, no accessory muscle use, crackles (L base and scant crackles in L mid), wheezing (upper airway) Cardiovascular: regular rate, rhythm, diastolic murmur Gastrointestinal: normal bowel sounds, non tender, soft Extremities: pedal edema (pitting edema B/L L>R) Neurologic/Psychiatric: alert, normal mood/affect, oriented x 3 Skin: normal color, warm/dry Lymphatic: no adenopathy, other (no virchow's node palpated) (MURRAY HOOPER) Focused Exam Lactate Level 12/05/22 01:38: Lactic Acid Level 1.38 (MIKEY SANDERS MD) Lactic Acid Level Laboratory Tests Test 12/05/22 01:38 Lactic Acid Level 1.38 MMOL/L (0.50-2.00) (MIKEY SANDERS MD) Progress/Results/Core Measures Suspected Sepsis SIRS Temperature: Pulse: 87 Respiratory Rate: Laboratory Tests 12/04/22 21:55: White Blood Count 5.5 Blood Pressure 177 /93 Mean: 121 Laboratory Tests 12/04/22 21:55: Creatinine 6.65H, INR Comment 2.0H, Platelet Count 233, Total Bilirubin 0.3 (MURRAY HOOPER) Results/Orders Lab Results Laboratory Tests Test 12/04/22 21:55 12/04/22 22:30 12/05/22 01:38 Range/Units White Blood Count 5.5 4.3-11.0 10^3/uL Red Blood Count 2.86 L 4.30-5.52 10^6/uL Hemoglobin 7.2 L 13.3-17.7 g/dL Hematocrit 23 L 40-54 % Mean Corpuscular Volume 79 L 80-99 fL Mean Corpuscular Hemoglobin 25 25-34 pg Mean Corpuscular Hemoglobin Concent 32 32-36 g/dL Red Cell Distribution Width 18.6 H 10.0-14.5 % Platelet Count 233 130-400 10^3/uL Mean Platelet Volume 9.7 9.0-12.2 fL Immature Granulocyte % (Auto) 3 % Neutrophils (%) (Auto) 78 H 42-75 % Lymphocytes (%) (Auto) 14 12-44 % Monocytes (%) (Auto) 4 0-12 % Eosinophils (%) (Auto) 1 0-10 % Basophils (%) (Auto) 0 0-10 % Neutrophils # (Auto) 4.3 1.8-7.8 10^3/uL Lymphocytes # (Auto) 0.8 L 1.0-4.0 10^3/uL Monocytes # (Auto) 0.2 0.0-1.0 10^3/uL Eosinophils # (Auto) 0.1 0.0-0.3 10^3/uL Basophils # (Auto) 0.0 0.0-0.1 10^3/uL Immature Granulocyte # (Auto) 0.2 H 0.0-0.1 10^3/uL Prothrombin Time 22.3 H 12.2-14.7 SEC INR Comment 2.0 H 0.8-1.4 Activated Partial Thromboplast Time 46 H 24-35 SEC Sodium Level 120 *L 135-145 MMOL/L Potassium Level 5.2 H 3.6-5.0 MMOL/L Chloride Level 95 L 98-107 MMOL/L Carbon Dioxide Level 11 L 21-32 MMOL/L Anion Gap 14 5-14 MMOL/L Blood Urea Nitrogen 82 H 7-18 MG/DL Creatinine 6.65 H 0.60-1.30 MG/DL Estimat Glomerular Filtration Rate 8 BUN/Creatinine Ratio 12 Glucose Level 106 H 70-105 MG/DL Calcium Level 9.1 8.5-10.1 MG/DL Corrected Calcium 10.5 H 8.5-10.1 MG/DL Total Bilirubin 0.3 0.1-1.0 MG/DL Aspartate Amino Transf (AST/SGOT) 30 5-34 U/L Alanine Aminotransferase (ALT/SGPT) 16 0-55 U/L Alkaline Phosphatase 79 40-136 U/L Total Protein 7.1 6.4-8.2 GM/DL Albumin 2.2 L 3.2-4.5 GM/DL Influenza Type A (RT-PCR) Not Detected Not Detecte Influenza Type B (RT-PCR) Not Detected Not Detecte SARS-CoV-2 RNA (RT-PCR) Not Detected Not Detecte Lactic Acid Level 1.38 0.50-2.00 MMOL/L (MIKEY SANDERS MD) My Orders Orders - MIKEY SANDERS MD Cbc With Automated Diff (12/04/22 22:27) Comprehensive Metabolic Panel (12/04/22 22:27) Protime With Inr (12/04/22:27) Partial Thromboplastin Time (12/04/22 22:27) Covid 19 Inhouse Test (12/04/22 22:27) Chest 1 View, Ap/Pa Only (12/04/22 22:27) Influenza A And B By Pcr (12/04/22 22:27) Ns Iv 500 Ml (Ns Iv 500 Ml) (12/04/22 22:57) Ct Chest Wo (12/04/22 23:04) Ns Iv 1000 Ml (Ns Iv 1000 Ml) (12/05/22 01:15) Blood Culture (12/05/22 01:27) Lactic Acid Analyzer (12/05/22 01:27) Piperacillin/Tazobactam (Piperacillin/Ta (12/05/22 01:30) Ipratropium/Albuterol Inh Soln (Ipratrop (12/05/22 02:00) Svn Small Volume Nebulizer (12/05/22 02:00) (MIKEY SANDERS MD) Medications Given in ED Current Medications Medications Dose Ordered Sig/Caio Route Start Time Stop Time Status Last Admin Dose Admin Albuterol/ Ipratropium 3 ml ONCE ONCE INH 12/05/22 02:00 12/05/22 02:01 DC 12/05/22 02:32 3 ML Piperacillin Sod/ Tazobactam Sod 4.5 gm/Sodium Chloride 100 ml @ 200 mls/hr ONCE ONCE IV 12/05/22 01:30 12/05/22 01:59 DC 12/05/22 01:50 200 MLS/HR (MIKEY SANDERS MD) Vital Signs/I&O 12/04/22 12/04/22 12/05/22 12/05/22 21:50 21:50 02:33 03:41 Temp 36.6 36.9 Pulse 87 89 Resp 20 B/P (MAP) 177/93 (121) 103/79 Pulse Ox 97 100 O2 Delivery Room Air Room Air Nasal Cannula Nasal Cannula O2 Flow Rate 1.00 2.00 12/05/22 00:00 Intake Total 500 ml Balance 500 ml (MIKEY SANDERS MD) Vital Signs/I&O Capillary Refill : (MURRAY HOOPER) Blood Pressure Mean: 121 Progress Note : Time: 01:29 Progress Note Patient seen and evaluated by me. I have reviewed the medical student's documentation and agree. Evaluation today includes physical exam, single view chest x-ray, CBC, Chem-12, coag profile, CT chest without contrast, COVID and flu test, blood culture and lactic acid. Pertinent physical exam findings elderly male who is conversationally dyspneic with normal oxygen saturations on room air of 96%. He has coarse breath sounds bilaterally with fine wheezes. No distress is noted. He has obvious blood in the posterior pharynx. Dry oral mucosa. Heart is regular. Abdomen is soft and nontender. He has 1+ pitting edema to the bilateral lower extremities. He is oriented x3. He denies chest pain. He denies nausea. Differential diagnosis based on history and physical exam pneumonia, dehydra tion, lung cancer. Labs, imaging independently reviewed and interpreted by me. CBC shows a total WBC of 5.5, Hgb 7.2 with Hct 23, platelets 233; 78% segmented neutrophils. CMP shows a sodium of 120, POt 5.2, Chloride 95, CO2 of 11, BUN of 82 and creatinine 6.65, glucose of 106. His albumin is 2.2. Coags elevated consistent with zarelto use. Covid and influenza negative. Lactic acid level pending at the time of this dictation. Patient initially treated with 500ml NS bolus and then started on NS at 100ml/hr. Will add an albuterol breathing treatment. His CT concerns me for possible cancer. I did do a CT chest without contrast and the rad report states extensive bilateral pulmonary infiltrates consistent with an atypical pneumonia? I do not think the patient's clinical picture correlates with pneumonia and am concerned again for lung cancer - with 50 years smoking history, loss of appetite. I am adding 4.5g Zosyn as he would be high risk for bacterial pneumonia with likely structural lung disease. I have discussed plan of care with the patient and his and my concerns for possible cancer. Discussed the case with Dr Bentley (our hospitalist) and she is not comfortable treating here without nephrology. [facility] in [place] has medical beds and I have intitiated the transfer process. (MIKEY SANDERS MD) Diagnostic Imaging Diagonstic Imaging: Xray Plain Films/CT/US/NM/MRI: chest Comments xray reviewed and interpreted by me - infiltrate vs mass right lower lung CT chest non contrast - read by Stat Rad "extensive bilateral pulmonary infiltrates compatible with nonspecific potentially atypical pneumonia." (MIKEY SANDERS MD) Departure Communication (Admissions) Time/Spoke to Consulting Phy: 01:[address] Bentley, declines due to renal function (MIKEY SANDERS MD) Impression Primary Impression: Hyponatremia Additional Impressions: Hemoptysis Acute on chronic renal failure Qualified Codes: N17.9 - Acute kidney failure, unspecified; N18.4 - Chronic kidney disease, stage 4 (severe) Abnormal chest CT Disposition: XF SHT-TRM HOSP Condition: Stable Transfer Transfer Reason: Exceeds level of care Transfer Facility: [facility] (MIKEY SANDERS MD) Departure-Patient Inst. Referrals: NAIA CORONA MD (PCP/Family) Primary Care Physician Verification and Attestation of Medical Student E/M Service A medical student performed and documented this service in my presence. I reviewed and verified all information documented by the medical student and made modifications to such information, when appropriate. I personally performed the physical exam and medical decision making. Mikey Sanders, Dec 05, 2022,04:41 (MIKEY SANDERS MD) Copy Copies To 1: ANIA CORONA MD, TAYLOR Dec 04, 2022 22:42 MIKEY SANDERS MD Dec 05, 2022 01:27
[2022-12-04 22:44] LABS: CREATININE SERUM 6.65 MG/DL (0.60-1.30)
[2022-12-04 22:47] LABS: PROTHROMBIN TIME PATIENT 22.3 SEC (12.2-14.7)
[2022-12-04 22:48] LABS: BASOPHILS % (AUTO) 0 % (0-10); EOSINOPHILS # (AUTO) 0.1 10^3/uL (0.0-0.3); EOSINOPHILS % (AUTO) 1 % (0-10); HEMATOCRIT 23 % (40-54); HEMOGLOBIN 7.2 g/dL (13.3-17.7); LYMPHOCYTES # (AUTO) 0.8 10^3/uL (1.0-4.0); LYMPHOCYTES % (AUTO) 14 % (12-44); MEAN CORPUSCULAR HEMOGLOBIN 25 pg (25-34); MEAN CORPUSCULAR HGB CONC 32 g/dL (32-36); MEAN CORPUSCULAR VOLUME 79 fL (80-99); MEAN PLATELET VOLUME 9.7 fL (9.0-12.2); MONOCYTES # (AUTO) 0.2 10^3/uL (0.0-1.0); MONOCYTES % (AUTO) 4 % (0-12); NEUTROPHILS # (AUTO) 4.3 10^3/uL (1.8-7.8); NEUTROPHILS % (AUTO) 78 % (42-75); PLATELET COUNT 233 10^3/uL (130-400); WHITE BLOOD COUNT 5.5 10^3/uL (4.3-11.0)
[2022-12-04] MEDS ORDERED: NS IV 500 ML 500 ML IV STA (22:57)
[2022-12-05] MEDS: NS IV 1000 ML 1,000 ML IV SCH ×2 (01:22→03:38)
[2022-12-05] MEDS ORDERED: PIPERACILLIN/Tazobactam 4.5 GM in NS (IVPB) 100 ML 100 ML IV ONE (01:30)
[2022-12-05] MEDS ORDERED: RT-Ipratropium/Albuterol NEB 3 ML VIAL INH ONE (02:00)
[2022-12-05 03:41] VITALS: BP 103/79
--- NOTE | 2022-12-05 07:27 | Diagnostic Imaging Report ---
PROCEDURE: CT chest without contrast. TECHNIQUE: Multiple contiguous axial images were obtained through the chest without the use of intravenous contrast. Auto Exposure Controls were utilized during the CT exam to meet ALARA standards for radiation dose reduction. INDICATION: Shortness of air and hemoptysis. Patient has renal failure and hyponatremia. There are mildly prominent lymph nodes in the left axilla and right axilla. There is also enlarged lymph nodes in the mediastinum. Elizabeth is difficult to evaluate without intravenous contrast. The heart is enlarged. There is no pericardial fluid. There are small bilateral pleural effusions. Extensive airspace consolidation involving bilateral upper lobes as well as bilateral lower lobes is noted, likely owing to infectious/inflammatory process. Upper abdomen demonstrates multiple small bilateral nonobstructing renal calculi. IMPRESSION: 1. Extensive bilateral pulmonary infiltrates and small bilateral pleural effusions. There is fairly significant lymphadenopathy in the mediastinum. While this could potentially be reactive, neoplasm or lymphoma cannot be excluded. There is also bilateral axillary lymphadenopathy. Dictated by: Dictated on workstation # [id number]
--- NOTE | 2022-12-05 07:52 | Diagnostic Imaging Report ---
INDICATION: SOB hemoptysis TECHNIQUE: Single view chest 10:43 PM CORRELATION STUDY: 04/05/2022 FINDINGS: Heart size and mediastinum are enlarged and prominent. Extensive 5 lobe infiltrate is present, overall adversely increased from prior. Most pronounced along the right lower and upper lung field. [id number] right and smaller left pleural effusion. IMPRESSION: 1. Extensive and progressive 5 lobe pulmonary infiltrate-like opacities, right greater than left. May reflect multifocal pneumonia versus edema. Dictated by: Dictated on workstation # [id number]
== END 2022-12-05 03:41 | disposition short-term general hospital (02) ==
LOC: EDUNIT# 21:48 → ER 21:49
DX: E87.1 Hypo-osmolality and hyponatremia (principal); I13.0 Hypertensive heart and chronic kidney disease with heart failure and stage 1 through stage 4 chronic kidney disease, or unspecified chronic kidney disease; E11.22 Type 2 diabetes mellitus with diabetic chronic kidney disease; I50.9 Heart failure, unspecified; N18.4 Chronic kidney disease, stage 4 (severe); N17.9 Acute kidney failure, unspecified; R04.2 Hemoptysis; R91.8 Other nonspecific abnormal finding of lung field; Z87.891 Personal history of nicotine dependence; Z20.822 Contact with and (suspected) exposure to COVID-19
CPT/HCPCS: 36415; 71045; 71250; 80053; 83605; 85025; 85610; 85730; 87040; 87636; 94640